=== PATIENT | male | born 2005 | race Caucasian/White ===

== ENCOUNTER 2024-11-22 05:58 | Emergency (ER) | payer BC, SELFPAY ==
--- OUTSIDE RECORDS SUMMARY | 2024-11-22 06:01 | XMS_ITS | Encounter Summary ---
Author Organization [facility] Address [address] [place] [address] Care Team Providers Care Floor Nurse Name Role Phone Provider, No Attributed RESOURCE Unavailable Unavailable Porter Yanes MD Primary Care Provider [phone] Reason for Visit * Reason Comments Refill Request Encounter Details Date Type Department Care Team (Late st Contact Info) Description 11/01/2024 Refill [facility] [address] [place] [address] Tomasz Bender MD [address] [place] [address] Refill Request Social History Tobacco Use Types Packs/Day Years Used Date Smoking Tobacco: Never Passive Smoke Exposure: Never Smokeless Tobacco: Never Alcohol Use Standard Drinks/Week Comments Never 0 (1 standard drink = 0.6 oz pur e alcohol) AUDIT-C Answer Date Recorded Q1: How often do you have a drink containing alc ohol? Never 12/22/2020 Average Number of Drinks Not on file 021 Frequency of Binge Drinking Not on file 12/05 PHQ-2 Answer Date Recorded PHQ-9 Total (Adult) 3 04/06/2024 Hunger Vital Sign Answer Date Recorded Within the past 12 months, y ou worried that your food would run out before you got the money to buy more. Never true 04/06/20 24 Within the past 12 months, t he food you bought just didn't last and you didn't have money to get more. Never true 04/06/2024 Abuse/Neglect Answer Date Recorded Member of Clubs or Organizations Not on file 04/06/2024 Does the patient display any signs or symptoms of abuse or neglect? No 04/06/2024 Sex and Gender Information Value Date Recorded Sex Assigned at Not on file Legal Sex Male 5:05 AM CDT Gender Identity Not on file Sexual Orientation Not on file documented as of this encounter Functional Status * Do you have difficulty with walking, balance, climbing stairs, or had a fall in the last 3 months? Answer Date of Assessment Author No 06/13/2017 4:11 PM CDT Katlin Fisher LPN documented as of this encounter Plan of Treatment Not on file documented as of this encounter Visit Diagnoses Diagnosis Controlled type 1 diabetes mellitus without complication, with long-term current use of insulin (HCC) documented in this encounter Care Teams Floor Nurse Relationship Specialty Start Date End Date Provider, No Attributed, RESOURCE [address] PCP - Attributed Provider 09/04/16 Porter Yanes MD [address] [place], [place] [address] PCP - General 09/28/19 documented as of this encounter
--- OUTSIDE RECORDS SUMMARY | 2024-11-22 06:01 | XMS_ITS ---
Author Name [employer] Organization [place] [facility] Support Name Relationship Address Phone NOT GIVEN Next of Kin [address] [place] [address] + JUANIS SUTTON Next of Kin [address] [place] [address] + ~([phone] PANTERA SUTTON Next of Kin [address] [place] [address] + ~(720 URMILA Next of Kin Unknown Unavailable Pantera Sutton Next of Kin [address] [place] [address] + [place], Juanis Next of Kin [address] [place] [address] + URMILA Next of Kin Unknown Unavailable Lesley Pantera Next of Kin [address] [place] [address] + [place], Juanis Next of Kin [address] [place] [address] + URMILA Next of Kin Unknown Unavailable Pantera Sutton Next of Kin [address] [place] [address] + Lesley, Juanis Next of Kin [address] [place] [address] + CHI Next of Kin Unknown Unavailable Pantera Sutton Next of Kin [address] [place] [address] + Lesley, Juanis Next of Kin [address] [place] [address] + CHI Next of Kin Unknown Unavailable Pantera Sutton Next of Kin [address] [place] [address] + Juanis Sutton Next of Kin [address] [place] [address] + CHI Next of Kin Unknown Unavailable Pantera Sutton Next of Ernesto [address] [place] [address] + Juanis Sutton Next of Kin [address] [place] [address] + NOT GIVEN Next of Kin [address] [place] [address] + JUANIS SUTTON Next of Kin [address] [place] [address] + ~(720 PANTERA SUTTON Next of Kin [address] [place] [address] + ~(720 [facility] Next of Kin Unknown Unavailable Pantera Sutton Next of Kin [address] [place] [address] + Juanis Sutton Next of Ernesto [address] [place] [address] + Care Team Providers Care Car Rental Agent Name Role Phone Nikita Willson Attending Physician Porter Lopez Primary Care Physician Porter Martinez Attending Physician Porter Giang Primary Care Physician Porter Martinez Attending Physician Porter Giang Primary Care Physician Letyva ilSnow Rae Attending Physician Potrer Abrams Primary Care Physician Unava ilSnow Rae Attending Physician Porter Abrams Primary Care Physician Letyva ilSnow Rae Attending Physician Porter Abrams Primary Care Physician Letyva ilSnow Rae Attending Physician Porter Abrams Primary Care Physician Rian ilSnow Rae Unavailable Unavailable PROBLEMS DATE TYPE CONDITION / CODE ATTENDING STATUS TINY GASTON 06/23/2024 Final Diagnosis (Discharge) Localized swelling, mass and lump, left upper limb / R22.32(ICD-10) Snow Corona [facility] 03/31/2024 Final Diagnosis (Discharge) Follicular cyst of the skin and subcutaneous tissue, unspecified / L72.9(ICD-10) Nikita Willson [facility] 03/31/2024 Final Diagnosis (Discharge) Benign lipomatous neoplasm, unspecified / D17.9(ICD-10) Nikita Willson [facility] RESULTS GENERAL SURGERY VISIT Observed: 07/02/20 24 9:43 AM Status: F Source: [place] REPOSITORY VIEWING DISCLAIMER Tables generated from host system lose formatting upon transmission to destination. Please consult the Document and Results tab for additional information. [facility] [place] Patient: Kolton Sutton [address] [place] [address] : 2005 Age/Sex: 18 / [place] [address] Status: DEP AMB P#: [phone] F#: Loc: CB.CBSURCL Acct: [id number] Visit Date: 07/02/24 [id number] General Surgery Visit Date of Service: 07/02/24 0943 Assessment Plan (1) Encounter for examination following surgery: (2) Lipoma of left forearm: Problem comment: excised x 4 Plan: Kolton Sutton is a 18-year-old male status post excision of left forearm lipomas x 3. I discussed with him that his incisions look to be healing very well. I do think the little patch of numbness lateral to the incisions could be because of positioning in the operating room or a superficial nerve injury with one of the lipoma excisions. Usually this does resolve in 6 to 12 weeks and I anticipate he will have full return of sensation. Discussed with him that he has no further bathing or activity restrictions. All questions were answered. He will follow-up as needed. Dictation Comment: This document was transcribed utilizing dqmyif-yc-eahy technology ([employer]). This may result in occasional mistranslation. Appointment was a face to face visit. Tobacco screening/follow-up Smoking tobacco status: former smoker Smokeless tobacco status: current smokeless tobacco user EMIL Hi is here for follow-up after excision of 3 lipomas in his left forearm. He states things are going well. His pain is minimal. He denies any swelling, redness, or drainage. He does have a little patch of numbness just lateral and distal to the more lateral incision. He does feel this numbness is getting better over time. He has full pattern storage clerk strength. Vital Signs 07/02/24 09:49 BP 108/72 Blood pressure location left arm Blood pressure position/source sitting - manual cuff BP cuff size adult Temp 97 F Temperature source tympanic Pulse 73 Respiration 16 Pulse oximetry 97 Oxygen delivery method room air Exam Objective/Exam: Constitutional Nurse documentation/Vital signs reviewed: yes Patient is well appearing; not in acute distress. Patient is alert, oriented x3 and cooperative on exam. HENMT Head: Atraumatic. Mouth: Moist mucous membranes. Cardiovascular Rate Rhythm: Regular rate. Respiratory Respiratory: Respiratory excursion is normal. Integumentary Details: On the left anterior forearm, all 3 incisions are clean, dry, intact with Dermabond in place. Intake Primary visit reason(s): Post-Operative Exam Intake assessment: Patient presents today for a post operative exam. Excision of left forearm lipoma x3 on 06/23/24. He states that he has had some numbness in his left wrist. He states that it is getting better every d ay, he states that there is some sensation but still numb. Appointment was a face to face visit Influenza vaccine status: patient will not receive this visit Have you traveled outside the [place] in the past 21 days: No Travel symptoms: none Smoking tobacco status: former smoker Patient is a former vaping/e-cigarette user Patient is a current smokeless tobacco user. Secondhand smoke exposure: Yes Allergies clindamycin Allergy (Severe, Verified 07/02/24 09:49) Hives Penicillins Allergy (Severe, Verified 07/02/24 09:49) Hives azithromycin Allergy (Mild, Verified 07/02/24 09:49) lip swelling Home Medication List - Last Reconciled 07/02/24 by Yusef Bowie LPN albuterol sulfate 90 mcg/actuation aerosol inhaler (Ventolin HFA) 1 inh inhalation 6H PRN blood sugar diagnostic As directed blood-glucose sensor As directed blood-glucose transmitter As directed diphenhydramine HCl 25 mg capsule (Benadryl) 25 mg PO BEDTIME PRN glucagon (human recombinant) 1 mg solution for injection PER MD GUIDANCE FOR DIABETIC CONTROL infusion set for insulin pump As directed insulin aspart U-100 100 unit/mL subcutaneous cartridge (Novolog PenFill U-100 Insulin aspart) 1 sliding scale dose subcut SLIDING insulin pump cartridge As directed lancets As directed levalbuterol HCl 1.25 mg/3 mL solution for nebulization (Xopenex) 1.25 mg (3 mL) inhalation TID PRN levocetirizine 5 mg tablet (Xyzal) 5 mg PO DAILY [Nebulizer (Nebulizer Machine) 1 EACH EACH] 1 ea ondansetron 8 mg disintegrating tablet 8 mg PO TID PRN Fall Risk Assessment Last Done: Have you had any falls in the last 12 months? no 04/0 01/24 Learning Language Readiness to learn: ready to learn Learning preferences: verbal and written Learning barriers: none Primary language: Senegalese Snow Corona MD <Electronically signed by Snow Corona MD> 07/02/24 1039 cc: CHAITANYA; : Document Initialized On: 07/02/24 0943 OPERATIVE NOTE Observed: 06/23/2024 12:15 PM Status: F [facility] [place] [id number] REPOSITORY VIEWING DISCLAIMER Tables generated from host system lose formatting upon transmission to destination. Please consult the Document and Results tab for additional information. [facility] Patient: Kolton Sutton [address] [place] [address] : 2005 Age/Sex: 18 / [place] [address] Status: REG SDS P#: [phone] F#: Loc: .[facility] Attending: Snow Corona MD Acct: [id number] Adm Date: 06/23/24 [facility] Date: MR:[id number] Operative Note Date of Service: 06/23/24 1215 Operative Procedure Operative/Procedure date: 06/23/24 Performing provider: Snow Corona MD Pre-operative diagnosis: Left forearm mass x 3 Post-operative diagnosis: Left forearm lipomas x 3 - Operative procedure(s): Excision of left forearm lipoma x 3 Indications: Kolton Sutton is a 18-year-old male with a past medical history significant for well-controlled type 1 diabetes, who presents with a symptomatic left forearm mass that is likely a lipoma. I discussed with the patient that given the size of the mass and his symptoms, I do recommend excision. I do think it needs to be done in the operating room because of the size. I discussed procedure with him in detail including the risks, benefits, alternatives of the procedure. We will plan to remove the 2 additional small masses just adjacent to this large mass as well. He will call his automatic spooler operator for recommendations on his insulin. All questions were answered. Patient was in agreement with plan. Consent was obtained. Complications: none - Findings: Lipomas x 3 measurin. 1.3 cm x 2.5 cm x 0.5 cm 2. 1 cm x 1 cm x 0.5 cm 3. 1.5 cm x 1 cm x 0.5 cm Estimated blood loss: 2 cc Specimens removed: other (lipoma x 3 discarded) Anesthesia used: moderate sedation - Procedure details: The patient was brought to the operating room and positioned supine on the operating room table. The left forearm was prepped and draped in the usual sterile fashion. A timeout was performed addressing the correct patient, procedure, medications, and equipment needed. After smooth induction of MAC anesthesia, local anesthetic was injected atop all 3 masses. Attention was first placed to the most lateral mass. An incision was made atop the mass. Dissection was taken down through the dermis with a 15 blade. Within the subcutaneous tissue an obvious lipoma was present. The lipoma was circumferentially dissected using a combination of a mosquito and cautery. The lipoma was entirely removed. The lipoma measured 1 cm x 1 cm x 0.5 cm. the wound bed was inspected and hemostasis ensured. Attention was then placed to the inferior mass. An incision was made atop the mass. Dissection was taken down through the dermis with a 15 blade. Within the subcutaneous tissue an obvious lipoma was present. The lipoma was circumferentially dissected using a combination of a mosquito and cautery. The lipoma was entirely removed. The lipoma measured 1.5 cm x 1 cm x 0.5 cm. The wound bed was inspected and hemostasis ensured. Attention was then placed to the medial mass. An incision was made atop the mass. Dissection was taken down through the dermis with a 15 blade. Within the subcutaneous tissue an obvious lipoma was present. The lipoma was circumferentially dissected using a combination of a mosquito and cautery. The lipoma was entirely removed. The lipoma measured 3 cm x 2.5 cm x 0.5 cm. the wound bed was inspected and hemostasis ensured. All 3 incisions were closed in 2 layers with interrupted 3-0 Vicryl deep dermal sutures followed by a 4-0 Monocryl running subcuticular stitch. The incisions were dressed with Dermabond. The patient tolerated the procedure well. All lap and instrument counts are correct. Dictation Comment: This document was transcribed utilizing nylcmj-pz-zuts technology ([employer] software). This may result in occasional mistranslation. Snow Corona MD <Electronically signed by Snow Corona MD> 06/23/24 1219 cc: ROBERTO CARLOS FLORIAN; : Document Initialized On: 06/23/24 1215 GENERAL SURGERY VISIT Observed: 06/18/20 10:10 AM Status: F Source: [place] [id number] REPOSITORY VIEWING DISCLAIMER Tables generated from host system lose formatting upon transmission to destination. Please consult the Document and Results tab for additional information. [facility] [place] Patient: Kolton Sutton [address] [place] [address] : 2005 Age/Sex: 18 / M [place], [place] [address] Status: DEP AMB P#: [phone] F#: Loc: CB.CBSURCL Attending: Snow Corona MD Acct: [id number] Adm Date: 06/18/24 [facility] Date: 06/18/24 MR:[id number] General Surgery Visit Date of Service: 06/18/24 1010 Assessment Plan (1) Lipoma: Plan: Kolton Sutton is a 18-year-old male with a past medical history significant for well-controlled type 1 diabetes, who presents with a symptomatic left forearm mass that is likely a lipoma. I discussed with the patient that given the size of the mass and his symptoms, I do recommend excision. I do think it needs to be done in the operating room because of the size. I discussed procedure with him in detail including the risks, benefits, alternatives of the procedure. We will plan to remove the 2 additional small masses just adjacent to this large mass as well. He will call his automatic spooler operator for recommendations on his insulin. All questions were answered. Patient was in agreement with plan. Dictation Comment: This document was transcribed utilizing bqnmwy-fa-qwkl technology (GumGum software). This may result in occasional mistranslation. Appointment was a face to face visit. Tobacco screening/follow-up Smoking tobacco status: former smoker Smokeless tobacco status: current smokeless tobacco user HPI Kolton Sutton is a 18-year-old male with a past medical history significant for type 1 diabetes who presents with a left forearm mass. Patient states he has noticed this mass for multiple years. It has slowly increased in size. He does think it is a lipoma. He has had a lipoma removed from this arm previously. He states it did not bother him initially but now it is causing significant pain. He likes to climb for exercise and states it is preventing him from climbing because of the pain. The pain is localized to that area and does not radiate. He denies any overlying skin redness or swelling. He denies any drainage. If he rests his arm the pain will get better. It also is tender if it gets pushed on. He also has 2 small ones right next to it that are almost connected to it. He does have type 1 diabetes which is well-controlled. He is a non-smoker. Subjective/ROS: General ROS: A 10 point review of system was obtained and is negative except per HPI Vital Signs 08/15/24 10:33 Height 5 ft 10.75 in Weight 87.5 kg Weight calculated (Senegalese) 192.9 lb BMI 27.1 BP 126/64 Blood pressure location left arm Blood pressure position/source sitting - manual cuff BP cuff size large adult Temp 96.7 F L Temperature source tympanic Pulse 90 Pulse oximetry 99 Oxygen delivery method room air Exam Objective/Exam: Constitutional Nurse documentation/Vital signs reviewed: yes Patient is well appearing; not in acute distress. Patient is alert, oriented x3 and cooperative on exam. HENMT Head: Atraumatic. Mouth: Moist mucous membranes. Cardiovascular Rate Rhythm: Regular rate. Respiratory Respiratory: Respiratory excursion is normal. Integumentary Details: On the left anterior forearm is an obvious mass. It is about 3 cm in diameter. Tender with palpation. Just lateral to the mass are 2 smaller masses about 1 cm in size. No overlying skin redness. PFSH PFSH Active Problems (Updated 06/18/24 @ 11:19 by Snow Corona MD) DM w/o complication type I (Acute 06/02/12) E10.9 Allergic asthma (Acute 08/22/12) J45.909 Medical History (Updated 06/18/24 @ 11:19 by Snow Corona MD) Sore throat J02.9 Varicella infection B01.9 03/2006 Tobacco/Substance use Smoking tobacco status: Patient is a former smoker. Vaping/e-cigarette use: never Smokeless tobacco status: current user Secondhand smoke exposure: yes Intake Primary visit reason(s): Lipoma Intake assessment: Here for left forearm lump. He states for the past few years it has gotten bigger. The last 6 weeks. Appointment was a face to face visit Have you traveled outside the [place] in the past 21 days: Yes Travel symptoms: none Smoking tobacco status: former smoker Patient has never been a vaping/e-cigarette user Patient is a current smokeless tobacco user. Secondhand smoke exposure: Yes Allergies clindamycin Allergy (Severe, Verified 06/18/24 10:35) Hives Penicillins Allergy (Severe, Verified 06/18/24 10:35) Hives azithromycin Allergy (Mild, Verified 06/18/24 10:35) lip swelling Home Medication List - Last Reconciled 06/18/24 by Kavon Bliss RN albuterol sulfate 90 mcg/actuation aerosol inhaler (Ventolin HFA) 1 inh inhalation 6H PRN blood sugar diagnostic As directed blood-glucose sensor As directed blood-glucose transmitter As directed diphenhydramine HCl 25 mg capsule (Benadryl) 25 mg PO BEDTIME PRN glucagon (human recombinant) 1 mg solution for injection PER MD GUIDANCE FOR DIABETIC CONTROL infusion set for insulin pump As directed insulin aspart U-100 100 unit/mL subcutaneous cartridge (Novolog PenFill U-100 Insulin aspart) 0 subcut SLIDING insulin pump cartridge As directed lancets As directed levalbuterol HCl 1.25 mg/3 mL solution for nebulization (Xopenex) 1.25 mg (3 mL) inhalation TID PRN levocetirizine 5 mg tablet (Xyzal) 5 mg PO DAILY [Nebulizer (Nebulizer Machine) 1 EACH EACH] Use as needed with neb treatments. ondansetron 8 mg disintegrating tablet 8 mg PO TID PRN Fall Risk Assessment Last Done: Have you had any falls in the last 12 months? no 01/24 Pain Patient is not currently experiencing pain. Learning Language Readiness to learn: ready to learn Learning preferences: verbal and written Learning barriers: none Primary language: Senegalese (1) Lipoma Lipoma location: upper extremity Laterality: left Qualified Code(s): D17.22 - Benign lipomatous neoplasm of skin and subcutaneous tissue of left arm Snow Corona MD <Electronically signed by Snow Corona MD> 06/18/24 1119 cc: [facility]; : Document Initialized On: 06/18/24 1010 FAMILY MEDICINE VISIT Observed: 03/31/20 24 4:21 PM Status: UNK Source: [place] REPOSITORY VIEWING DISCLAIMER Tables generated from host system lose formatting upon transmission to destination. Please consult the Document and Results tab for additional information. [facility] [place] Patient: Kolton Sutton [address] [place] [address] : 2005 Age/Sex: 18 / [place] [address] Status: DEP AMB P#: [phone] F#: Loc: .BWFPCL Attending: Nikita Willson DO Acct: [id number] Adm Date: 03/31/24 [facility] Date: 03/31/24 MR:[id number] Family Medicine Visit Date of Service: 03/31/24 1002 ADDENDUM Office Procedure Documentation entered by Juanis Mckeon RN 03/31/24 16:21: Office Meds lidocaine 1 %-epinephrine 1:100,000 injection solution Performing Provider: Nikita Willson DO Performing Location: [facility] Administered by: Juanis Mckeon RN on 03/31/24 16:19 Dose Route Admin Location Dispensed Lot Number Expiration Date [facility] Man ufacturer 2.5 mL subcut Left forearm 2.5 mL [id number] 01/31/25 68362-089-52 DEQUAN Mckeon RN cc: [id number] 1621 Assessment Plan (1) Cyst of skin: (2) Lipoma: Appointment was a face to face visit. Plan details: * Discussed differential for left forearm cyst, as this is contributing to discomfort, he elected for removal, complications discussed, see separate procedure note Subjective Patient returns to follow-up recent concern for cyst on left arm, has noticed some more growths in same area, these are growing and somewhat painful. Looks like he was evaluated 4/3, 2 lipomas on left forearm, and 1 cyst on left forearm were noted. He was instructed to monitor for changes, discussed excision but possibility for recurrence. He shares that when he flexes his forearm, or this particular bump is contacted he will have discomfort. He is interested in removal today. His medical history is significant for type 1 diabetes. Medications, Allergies, and PMH/PSH/FH/SH reviewed. Objective Vitals reviewed. GENERAL: Alert and oriented x 3. No acute distress. Well-nourished. EXTREMITIES: No edema. Non-tender. Distal, third region of volar left forearm palpated, there is a small about 2 cm mobile structure notable in superficial dermis, this was identified as the area of concern, and marked for removal SKIN: No rashes or lesions. Warm. Does have some ipsilateral contact dermatitis surrounding the left wrist and a watch distribution, this is a separate area Tobacco screening/follow-up Smoking tobacco status: former smoker Smokeless tobacco status: never smokeless tobacco user Provider Procedures Lesions Procedure details After informed consent was received, the area was prepped in sterile fashion and 2.5 cc of 1% Lidocaine with epinephrine was used to obtain anesthesia. A 3 cm incision was made across the lesion using 11 blade scalpel. I then dissected out the lipoma and its full contents from surrounding connective tissue using blunt dissection. There was no excess lipoma or cyst left at this site. 3 interrupted sutures with 4-0 suture were placed. Removal of sutures was arranged in 7 days. Dressing applied. Aftercare instructions discussed. Patient tolerated the procedure well. Sent for path. Does appear like a lipoma. Vital Signs 03/31/24 11:44 Weight 86 kg Weight calculated ([place]alese) 189.6 lb BP 118/68 Blood pressure location right arm Blood pressure position/source sitting - manual cuff BP cuff size adult Temp 98.2 F Temperature source temporal Pulse 72 Respiration 16 Pulse oximetry 98 Oxygen delivery method room air Exam Objective/Exam: Constitutional Patient is an established patient. [facility] Active Problems (Updated 01/28/23 @ 16:13 by Rj Tavarez MD) Sore throat J02.9 DM w/o complication type I (Acute 06/02/12) E10.9 Allergic asthma (Acute 08/22/12) J45.909 Medical History Varicella infection B01.9 03/2006 Tobacco/Substance use Smoking tobacco status: Patient is a former smoker. Vaping/e-cigarette use: current Smokeless tobacco status: never smokeless tobacco user Secondhand smoke exposure: yes Intake Primary visit reason(s): Lipoma Appointment was a face to face visit Have you traveled outside the [place] in the past 21 days: Yes ([place] ) Travel symptoms: none Smoking tobacco status: former smoker Patient is a current vaping/e-cigarette user Patient has never been a smokeless tobacco user. Secondhand smoke exposure: Yes Allergies clindamycin Allergy (Severe, Verified 03/31/24 11:47) Hives Penicillins Allergy (Severe, Verified 03/31/24 11:47) Hives azithromycin Allergy (Mild, Verified 03/31/24 11:47) lip swelling Home Medication List - Last Reconciled 03/31/24 by Juanis Mckeon, REGINALD albuterol sulfate 90 mcg/actuation aerosol inhaler (Ventolin HFA) 1 inh inhalation 6H PRN blood sugar diagnostic As directed blood-glucose sensor As directed blood-glucose transmitter As directed diphenhydramine HCl 25 mg capsule (Benadryl) 25 mg PO BEDTIME PRN glucagon (human recombinant) 1 mg solution for injection PER MD GUIDANCE FOR DIABETIC CONTROL infusion set for insulin pump As directed insulin aspart U-100 100 unit/mL subcutaneous cartridge (Novolog PenFill U-100 Insulin aspart) 0 subcut SLIDING insulin pump cartridge As directed lancets As directed levalbuterol HCl 1.25 mg/3 mL solution for nebulization (Xopenex) 1.25 mg (3 mL) inhalation TID PRN levocetirizine 5 mg tablet (Xyzal) 5 mg PO DAILY [Nebulizer (Nebulizer Machine) 1 EACH EACH] Use as needed with neb treatments. ondansetron 8 mg disintegrating tablet 8 mg PO TID PRN Fall Risk Assessment Last Done: Have you had any falls in the last 12 months? no 01/24 Visit Details Patient is an established patient. Accompanied by: Self / Same As Patient Pain Patient is currently experiencing pain. (cyst of left forearm pain ) Left Arm pain 11/13 Learning Language Readiness to learn: ready to learn Learning preferences: verbal and written Learning barriers: none Primary language: Sen[place]alese Nikita Willson DO <Electronically signed by Nikita Willson DO> 03/31/24 1442 cc: ; : Document Initialized On: 03/31/24 1002 SURGICAL Observed: 03/31/2024 12:00 AM Status: COMPLETED Source: [place] REPOSITORY ----- ------- RUN DATE: 04/03/24 TROY LAM AviationLive* - LAB PAGE 1 RUN TIME: 954 Specimen Inquiry ----- ------- PATIENT: Kolton Sutton ACCT: [id number] LOC: .BWFPCL U: [id number] AGE/SX: 18/M ROOM: RE03/31/[address]: Nikita Willson DO : 2005 BED: DIS: STATUS: MARY JANE CELAYA TLOC: ----- ------- SPEC : [id number] RECD: 04/01/24 STATUS: [facility] NUM: [id number] ROLANDO: 03/31/24- SUBM DR: Nikita Willson DO ENTERED: 04/01/24 SP TYPE: Surgical OT DR: ORDERED: [id number] CODES: Cyst, NOS PROCEDURES: 84424 (04/01/24) TISSUES: 1. Cyst, NOS PATHOLOGY REPORT: DIAGNOSIS SOFT TISSUE, LEFT FOREARM NODULE, EXCISION: ANGIOLIPOMA. CLINICAL HISTORY: Enlarging skin nodule, forearm, painful. SPECIMEN: CYST, NOS, LEFT FOREARM GROSS DESCRIPTION: Received in formalin labeled with the patient's name and left forearm cyst is a 2.8 x 2.5 x 0.4 cm aggregate of monroy-maurer to brown, irregular, lobulated, fibrofatty soft tissue fragments. TE1. Natalie Weirarron OMAR 04/01/2024 1141 MICROSCOPIC DESCRIPTION: Sections show fibrofatty soft tissue with lobulated areas of mature fat, delicate fibrous septae and numerous capillaries with fibrin thrombi. There is no evidence of malignancy. TECHNICAL BILLING CODES (CPT): 38531 X 1 PROFESSIONAL BILLING CODES (CPT): 42293 X 1 Printed: 04/03/2024 9:54 AM YAJAIRA AQUINO MD 04/03/2024 09:54 Electronic Signature CONTINUED ON NEXT PAGE ----- ------- RUN DATE: 04/03/24 HERMILA *Live* - LAB PAGE 2 RUN TIME: 954 Specimen Inquiry ----- ------- SPEC: [id number] PATIENT: Kolton Sutton [id number] (Continued) ----- ------- ----- ------- Signed Yajaira Aquino MD 04/03/24 0955 ----- ------- END OF REPORT Performed By: #### S #### Hermila [address] [address] ALLERGIES DATE TYPE / CODE NAME / CODE REACTION SEVERITY SOURCE 07/02/2024 Drug Allergy/416 780866(SNOM ED CT) Penicillins/X82260506 6(RXNORM) Hives Severe (Severity Modifier) (Qualifier Value) [facility] 07/02/2024 Drug Allergy/416 574543(SNOM ED CT) clindamycin/E64428227 4(RXNORM) Hives Severe (Severity Modifier) (Qualifier Value) [facility] 07/02/2024 Drug Allergy/416 642002(SNOM ED CT) azithromycin/S0748333 35(RXNORM) lip swelling Mild (Qualifier Value) [facility] 09/21/2020 DRUG INGREDI/419 581533(SNOM ED CT) AZITHROMYCIN HYDROGENCITRATE Other [facility] 01/09/2018 Environ/420 050628(SNOM ED CT) PLANTS Positive Lab [facility] 01/09/2018 DRUG INGREDI/419 010471(SNOM ED CT) MOLDS AND SMUTS Positive Lab [facility] 09/11/2013 DRUG INGREDI/419 234463(SNOM ED CT) CLINDAMYCIN Rash [facility] 08/09/2011 Drug Class/76338 1003(SNOMED CT) PENICILLIN HIVES [facility] ENCOUNTERS ADMIT/DISCHARGE ACCOUNT NUMBER ADMITTING ENCOUNTER CLASS LOCATION SOURCE 10/02/2024 [id number] Ambulatory Building:[facility] PBBRoom: [id number] [facility] 07/02/2024/07/02/20 24 [id number] Ambulatory [facility]/23/2024/06/23/20 24 [id number] Ambulatory SBuilding:BBSammy Salazar [facility] 06/23/2024 [id number] Ambulatory [facility] SpecialtyBuilding :CB.ALVARO [facility] 06/18/2024/06/18/20 24 [id number] Ambulatory [facility] :CB.OLIVIER [facility] 06/12/2024 [id number] [facility] 04/07/2024/04/07/20 24 [id number] [facility] 04/06/2024/04/06/20 24 [id number] Ambulatory Building:[facility] N S [facility] ENDO[facility]OLOGY PBBRoom: [phone] [facility] 03/31/2024/03/31/20 24 [id number] [facility].BWFPCL [facility] PAYERS ENCOUNTER GUARANTOR PAYER SUBSCRIBER SOURCE 10/02/2024 Primary Insuranc e:[facility] TRINITY ALMANZAPolicy Number: [id number] Date:5234-16-16Pgvv Name:Marisa Levine WINGATEDOB: [id number] [place] [address] [facility] 07/02/2024 Kolton [id number], [place] [address]Vlv: (HP) Primary Insurance:[facility] 141Policy Number: [id number] Date:5575-02-24[address] [address]IJ: Pantera Barr WingateDOB: [id number] [place] [address]Vga: (HP) [facility] 07/02/2024 Kolton [id number], [place] [address]Gej: (HP) Secondary Insurance:Self PayPolicy Number: Effective Date:2024-06-23 NOT GIVENUNK [facility] 06/23/2024 Kolton [id number] [place], [place] [address]Qmn: (HP) Primary Insurance:[facility] 141Policy Number: [id number] Date:0962-99-99ZK [address] [address]PG: Pantera Barr WingateDOB: [id number] [place] [address]Lsf: (HP) [facility] 06/23/2024 Kolton [id number] [place], [place] [address]Ucf: (HP) Secondary Insurance:Self PayPolicy Number: Effective Date:2024-06-22 NOT GIVENUNK [facility] 06/23/2024 Kolton [id number], [place] [address]Ilk: (HP) Primary Insurance:[facility] 141Policy Number: [id number] Date:8443-48-97ST [address] [address]OC: Pantera Barr WingateDOB: [id number] [place] [address]Nkm: (HP) [facility] 06/23/2024 Kolton [id number], [place] [address]Xkh: (HP) Secondary Insurance:Self PayPolicy Number: Effective Date:2024-06-23 NOT GIVENUNK [facility] 06/18/2024 Kolton [id number], [place] [address]Dcb: (HP) Primary Insurance:[facility] 141Policy Number: [id number] Date:4256-92-39GG [address] [address]XT: Pantera Rowejinny ReyesateDOB: [id number] [place] [address]Nuw: (HP) [facility] 06/18/2024 Kolton [id number] [place], [place] [address]Kgz: (HP) Secondary Insurance:Self PayPolicy Number: Effective Date:2024-06-16 NOT GIVENUNK [facility] 06/12/2024 Kolton [id number], [place] [address]Jed: (HP) Primary Insurance:[facility] 141Policy Number: [id number] Date:7297-34-35RS [address] [address]SR: Pantera ReyesateDOB: [id number] [place] [address]Plg: (HP) [facility] 06/12/2024 Kolton [id number], [place] [address]Zba: (HP) Secondary Insurance:Self PayPolicy Number: Effective Date:2024-06-11 NOT GIVENUNK [facility] 04/07/2024 Kolton [id number], [place] [address]Ogw: (HP) Primary Insurance:[facility] 141Policy Number: [id number] Date:3016-94-38DG [address] [address]EG: Pantera Barr ateDOB: [id number] [place] [address]Cai: (HP) [facility] 04/07/2024 Kolton [id number], [place] [address]Oxl: (HP) Secondary Insurance:Self PayPolicy Number: Effective Date:2024-04-03 NOT GIVENUNK [facility] 04/06/2024 Primary Insuranc e:[facility] TRINITY SHETTYHOLSTEINUsmany Number: [id number] Date:3006-95-16Dkll Name:Marisa REYESATEDOB: [id number] [place] [address] [facility] 03/31/2024 Kolton [id number], [place] [address]Xas: (HP) Primary Insurance:[facility] 141Policy Number: [id number] Date:0983-35-14BX [address] [address]OR: Pantera Barrettolas WingateDOB: [id number] [place] [address]Cug: () [facility] 03/31/2024 Kolton [id number] [place] [address]Lzu: () Secondary Insurance:Self PayPolicy Number: Effective Date:2024-03-31 NOT GIVENUNK [facility]
--- OUTSIDE RECORDS SUMMARY | 2024-11-22 06:01 | XMS_ITS | Clinical Summary ---
Author Organization Counts include 234 beds at the [facility] Address [address] [place] [address] Care Team Providers Care Lock And Dam Repairer Name Role Phone Self-Referral, Patient MD Primary Care Provider Source Comments You are receiving this document as you are listed as the primary care provider,follow-up provider, or the patient has been referred to you for consultation.This is in compliance with the Medicare andJoint [facility] Memorial Hospitalcaid EHR Incentive Program,which states Providers who transition their patient to another setting of careor provider of care or refers their patient to another provider of care shouldprovide summary care record for each transition of care or referral. [facility] Allerg[facility] Active Allergy Reactions Criticality Noted Date Comments Azithromycin Hives High 09/30/2024 Clindamycin Hives High 09/30/2024 Penicillins Hives High 09/30/2024 Medications Medication Sig Dispensed Refills Start Date End Date Status Insulin Aspart (NOVOLOG IJ) Active insulin aspart, w/niacinamide, 100 UNIT/ML SOLN Inject 0.88 mL (88 Units) subcutaneously daily. 80 mL 4 09/30/2024 Active insulin syringe-needle U-100 0.3ml 31g x 15/64 Use to inject insulin daily as instructed. 100 Each 3 09/30/2024 09/30/2025 Active Dexcom G7 Sensor continuous blood glucose deviceIndications: Type 1 diabetes mellitus without complication (HRC) Use for continuous glucose monitoring. Change sensor every 10 days. 09/30/2024 Active Active Problems Problem Noted Date Diagnosed Date Type 1 diabetes mellitus without complication IgA deficiency 09/30/2024 Encounters Date Type Department Care Team Description 09/30/2024 2:35 PM MANGANESE HEATER Lab Visit [facility] 3850 Laboratory [address] [facility] [place], [place] [id number] Type 1 diabetes mellitus without complication (HRC) 09/30/2024 1:40 PM MANGANESE HEATER Office Visit [facility] [address] [place] [address]. [place] [address] Olegario Brunner MD Type 1 diabetes mellitus without complication (HRC) (Primary Dx); Attention deficit; IgA deficiency (HRC) from Last 3 Months Social History Tobacco Use Types Packs/Day Years Used Date Smoking Tobacco: Never Smokeless Tobacco: Former Snuff Tobacco Cessation:Counseling Given: Not Answered Alcohol Use Standard Drinks/Week Comments Yes 0 (1 standard drink = 0.6 oz pur e alcohol) 1 Sex and Gender Information Value Date Recorded Sex Assigned at Not on file Gender Identity Not on file Sexual Orientation Not on file Last Filed Vital Signs Vital Sign Reading Time Taken Comments Blood Pressure 121/60 09/30/2024 2:25 PM MANGANESE HEATER Pulse 62 09/30/2024 2:25 PM MANGANESE HEATER Temperature - - Respiratory Rate - - Oxygen Saturation - - Inhaled Oxygen Concentration - - Weight 90.8 kg (200 lb 3.2 oz) 09/30/2024 1:44 P M MANGANESE HEATER Height 179.7 cm (5' 10.75) 09/30/2024 1:[address] Body Mass Index 28.12 09/30/2024 1:44 PM MANGANESE HEATER Plan of Treatment Upcoming Encounters Date Type Department Care Team (Late st Contact Info) Description 03/24/2025 9:15 AM CDT Appointment [place] [address] [place] [address]. [place] [address] Ponce Jones PA-C [address] [place], [place] [phone] Health Maintenance Due Date Last Done Comments Diabetes: Eye Exam 2004 Diabetes: Foot Exam 2004 Hep C Screening (Preventive Services) 2004 Pneumococcal (1 - PCV) 2010 HPV Vaccine (1 - Male 3-dose series) 2019 HIV Screening (Preventive Services) 2020 Adult Preventive Visit 2022 DTaP/Tdap/Td (1 - Tdap) 2023 HepB (1) 2023 Diabetes: HGBA1C 03/30/2025 09/30/2024 Diabetes: Creatinine 09/30/2025 09/30/2024 Diabetes: Urine Microalbumin 09/30/2025 09/30/2024 Diabetes: Lipid Panel 09/30/2029 09/30/2024 Zoster/Shingles (1 of 2) 2054 COVID-19 Vaccine Completed 08/06/2024, 10/31/2023 Influenza Completed 08/06/2024, 10/31/2023 HepA Aged Out No longer eligi ble based on patient's age to complete this topic Hib Aged Out No longer eligi ble based on patient's age to complete this topic IPV (Polio) Aged Out No longer eligi ble based on patient's age to complete this topic MCV4 Aged Out No longer eligi ble based on patient's age to complete this topic Procedures Procedure Name Priority Date/Time Associated Diagnosis Comments ALBUMIN/CREAT RATIO Routine 09/30/2024 2 :56 PM MANGANESE HEATER Type 1 diabetes mellitus without complication (HRC) CREATININE / GFR Routine 09/30/2024 2:37 PM MANGANESE HEATER Type 1 diabetes mellitus without complication (HRC) LIPID PANEL & DIRECT LDL (IF NEEDED) Routine 09/30/2024 2:37 PM MANGANESE HEATER Type 1 diabetes mellitus without complication (HRC) COMPLETE BLOOD COUNT-NO DIFF Routine 09/30/2024 2:37 PM MANGANESE HEATER Type 1 diabetes mellitus without complication (HRC) HGB A1C Routine 09/30/2024 2:37 PM MANGANESE HEATER Type 1 diabetes mellitus without complication (HRC) from Last 3 Months Results * Albumin/Creatinine Ratio,Random Urine (09/30/2024 2:56 PM MANGANESE HEATER) Albumin/Creati nine Ratio, Urine, Random 2 <30 mg/g 09/30/2024 4:27 PM MANGANESE HEATER [facility] 3850 LABORATORY Albumin, Urine, Random 2.2 mg/L 09/30/2024 4:27 PM [place] [address] LABORATORY Creatinine, Urine, Random 105 >20 mg/dL mg/dL 09/30/2024 4:27 PM MANGANESE HEATER [place] 638960 LABORATORY Urine Non-blood Collection / Unknown 09/30/2024 2:56 PM MANGANESE HEATER 09/30/2024 2:56 PM MANGANESE HEATER Olegario Brunner MD LAB_1 Performing Organization Address [facility] de Phone Number [place] [id number] [place] [address] * (ABNORMAL) Lipid Panel & Direct LDL (if Needed) (09/30/2024 2:37 PM MANGANESE HEATER) [facility] Cholesterol 143 0 - 199 mg/dL 09/30/2024 4:30 PM [place] [address] LABORATORY Triglyceride 86 <=149 mg/dL 09/30/2024 4:30 PM [place] [address] LABORATORY HDL Cholesterol 35(L) >=40 mg/dL 4:30 PM [place] [address] LABORATORY LDL, Calculated 91 <130 mg/dL 4:30 PM [place] [address] LABORATORY Non HDL Chol, Calculated 108 <=144 mg/dL 09/30/2024 4:30 PM [place] 166470 LABORATORY Cholesterol/HDL Ratio 4.1 <=5.0 09/30/2024 4:30 PM [place] [address] LABORATORY Hours Fasting 0.0 8 - 12 Hours 09/30/2024 4:30 PM [place] [address]64[address] LABORATORY Comment:Patient has indicate d a non-fasting status. Blood Venipuncture / Unknown 09/30/2024 2:37 PM MANGANESE HEATER 09/30/2024 2:37 PM MANGANESE HEATER Olegario Brunner MD LAB_1 Performing Organization Address City/[facility]/ZIP Co de Phone Number [place] [address] LABORATORY [address] [place] [address], [facility] * Creatinine / GFR (09/30/2024 2:37 PM MANGANESE HEATER) [facility] Creatinine 1.18 0.73 - 1.18 mg/dL 09/30/2024 4:30 PM MANGANESE HEATER [place] [address] LABORATORY GFR, Estimated >60 >60 mL/min/1.7 3m2 09/30/2024 4:30 PM MANGANESE HEATER [place] [address] LABORATORY Blood Venipuncture / Unknown 09/30/2024 2:37 PM MANGANESE HEATER 09/30/2024 2:37 PM MANGANESE HEATER Olegario Brunner MD LAB_1 Performing Organization Address [facility] Co de Phone Number [place] [address] LABORATORY [address] [place] [address] * (ABNORMAL) Complete Blood Count-No Diff (09/30/2024 2:37 PM MANGANESE HEATER) [facility] WBC 5.8 3.5 - 10.5 x10(9)/L 09/30/2024 2:56 PM MANGANESE HEATER [place] [address] LABORATORY RBC 5.25 4.32 - 5.72 x10(12)/L 09/30/2024 2:56 PM [place] [address] LABORATORY Hemoglobin 16.1 13.5 - 17.5 g/dL 09/30/2024 2:56 PM [place] [address] LABORATORY HCT 45.6 38.8 - 50.0 % 09/30/2024 2:56 PM [place] [address] LABORATORY MCV 86.9 80.0 - 100.0 fL 09/30/2024 2:56 PM [place] [address] LABORATORY MCH 30.7 27.6 - 33.3 pg 09/30/2024 2:56 PM [place] [address] LABORATORY MCHC 35.3(H) 31.5 - 35.2 g/dL 09/30/2024 2:56 PM [place] [address] LABORATORY RDW 11.9 11.9 - 15.5 % 09/30/2024 2:56 PM MANGANESE HEATER [place] [address] LABORATORY Platelets 250 150 - 450 x10(9)/L 09/30/2024 2:56 PM MANGANESE HEATER [place] [address] LABORATORY Automated NRBC 0 <=0 /100 WBC 09/30/2024 2:56 PM MANGANESE HEATER [facility] 3850 LABORATORY Blood Venipuncture / Unknown 09/30/2024 2:37 PM MANGANESE HEATER 09/30/2024 2:37 PM MANGANESE HEATER Olegario Brunner MD LAB_1 Performing Organization Address City/[facility]/ZIP Co de Phone Number [place] [address] LABORATORY [address] [place] [address], [facility] * (ABNORMAL) Hgb A1C (09/30/2024 2:37 PM MANGANESE HEATER) Hemoglobin A1C 7.1(H) <=5.6 % 10/01/2024 11:19 AM [facility] Estimated Average Glucose (Calc) 157 < 117 mg/dL 10/01/2024 11:19 AM [facility] Comment:Estimated average gl ucose (eAG) converts A1c into glucose units (mg/dL) and estimates average glucose over the past approximately 3 months. The eAG reference interval (<117 mg/dL) corresponds to an A1c of <5.7%. Blood Venipuncture / Unknown 09/30/2024 2:37 PM MANGANESE HEATER 09/30/2024 2:37 PM MANGANESE HEATER Narrative [facility] - 10/01/2024 11:19 AM MANGANESE HEATER For patients not previously diagnosed with diabetes: 5.7-6.4%: Increased risk for diabetes 6.5% and greater: Diagnostic for diabetes For patients diagnosed with diabetes: <8.0%: Goal of therapy for ages 18-75 Clinicians may recommend a higher or lower goal for specific individuals. Olegario Brunner MD LAB_1 [facility] [address] [address], [facility] from Last 3 Months Care Teams Lock And Dam Repairer Relationship Specialty Start Date End Date Self-Referral, Patient, [place] [address] PCP - General 08/26/24
--- OUTSIDE RECORDS SUMMARY | 2024-11-22 06:01 | XMS_ITS | Clinical Summary ---
Author Organization [employer] Address [address] [place] [address] Care Team Providers Care Director Music Name Role Phone Provider, No Attributed RESOURCE Unavailable Unavailable Porter Yanes MD Primary Care Provider [phone] Allergies Active Allergy Reactions Criticality Noted Date Comments Azithromycin Hydrogencitrate Other (Specify in Comments) 09/21/2020 Lips swelled Clindamycin Rash 09/11/2013 Possible rash from medication Plants Positive Allergy Test or Lab Result 01/09/2018 Trees/grasses/weeds Molds & Smuts Positive Allergy Test or Lab Result 01/09/2018 Penicillin Hives (High) High 08/09/2011 Medications levalbuterol (XOPENEX HFA) 45 MCG/ACT inhaler Inhale 2 puffs orally every 4 to 6 hours as needed. Shake well before using. Active Blood Glucose Monitoring Suppl (ACCU-CHEK GUIDE) w/Device KITIndications:Un controlled type 1 diabetes mellitus with hyperglycemia, with long-term current use of insulin (HCC) 1 each as needed (Use to check blood sugar as needed.) 1 Device 07/25/20 20 Active ibuprofen (MOTRIN) 800 mg tablet Take 1 tablet by mouth Every 6 to 8 hours as needed for mild pain 03/28/20 21 Active Insulin Infusion Pump Supplies (AUTOSOFT XC INFUSION SET) MISC 04/20/20 21 Active Accu-Chek Fastclix lancetsIndication s:Uncontrolled type 1 diabetes mellitus with hyperglycemia, with long-term current use of insulin ([facility]) Use to check blood sugar up to 10 times daily, more if increased activity, illness, or insulin changes. 100 each 12/13/19 22 Active insulin detemir (LEVEMIR) subcutaneous injection (vial)Indications :Uncontrolled type 1 diabetes mellitus with hyperglycemia, with long-term current use of insulin ([facility]) Administer 27 units subcutaneously at bedtime (+2 units for priming); change dose as directed. 15 mL 1 04/13/20 22 Active glucagon (BAQSIMI ONE PACK) 3 MG/DOSE nasal powderIndications :Controlled type 1 diabetes mellitus without complication, with long-term current use of insulin ([facility]) [place] 3 mg into one nostril as needed (severe hypoglycemia) 1 each 3 06/04/20 23 Active glucagon, rDNA, (GLUCAGEN) 1 mg injection kitIndications:Un controlled type 1 diabetes mellitus with hyperglycemia, with long-term current use of insulin ([facility]) Inject 1 mg IM for severe low blood sugar when unable to take oral glucose. 2 each 3 06/04/20 23 Active Accu-Check Guide test stripIndications: Uncontrolled type 1 diabetes mellitus with hyperglycemia, with long-term current use of insulin ([facility]) Use to check blood sugar up to 5 times daily, more if increased activity, illness, or insulin changes. 150 each 06/10/20 23 Active acetone, urine, test (KETOSTIX) STRPIndications:U ncontrolled type 1 diabetes mellitus with hyperglycemia, with long-term current use of insulin ([facility]) Use to check urine for ketones with illness, vomiting, and/or blood sugar >300 x2. 50 Strip 3 10/03/20 23 Active ondansetron (ZOFRAN ODT) 8 mg dispersible tabletIndications :Uncontrolled type 1 diabetes mellitus with hyperglycemia, with long-term current use of insulin ([facility]) Take 1 tablet (8 mg) by mouth as needed for nausea or vomiting 10 tablet 6 10/03/20 23 Active Dexcom G7 SensorIndications :Type 1 diabetes mellitus with hyperglycemia ([facility]) Apply new sensor to be used every 10 days with Dexcom G7. 9 each 3 01/17/20 24 Active insulin aspart (NOVOLOG) subcutaneous injection (vial)Indications :Controlled type 1 diabetes mellitus without complication, with long-term current use of insulin ([facility]) Use to control blood sugar as directed. Currently using up to 72 units per day via insulin pump. 70 mL 08/25/20 24 Active Active Problems Problem Noted Date Diagnosed Date H/O concussion 07/10/2022 Overview (07/10/2022): 06/17/22 CA= 17 5/12 6th concussion (soccer ball to head). No more soccer for [place]. 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 Type 1 diabetes mellitus with hyperglycemia 03/05 Overview (01/08/2023): 2004 Originally diagnosed ~ 10 months old 01/09/18 pump failure > replaced with Medtronic 571 04/30/18 A1c down to 7.1% with DexCom confidence for tighter control and more data for family to make own pump adjustments between visit. Considering replacing Medtronic pump when warranty expires, with T-Slim 07/03/18 T-slim pump began 08/06/18 A1c=7% on 0.86 U/kg/d 11/12/18 A1c=7.8% on 1.1 U/kg/d. Does not wake with DexCom sensor lows. 11/25/19 CA= 14 11/ on 0.8 U/kg/d with slowing of pubertal growth spurt, A1c=7.7% 07/10/22 CA= 17 6/12 on 0.0.7 u/kg/d A1c=7%. Pump out of warranty and only holding charge 2 days (was 7 originally) 01/08/23 CA= 18 on 0.7 U/kg/d, A1c=7.3%. Planning to travel to [place] for next school year (Jun-March) Resolved Problems Problem Noted Date Diagnosed Date Resolved Date Atypical mole 12/09/2019 03/30/2020 Overview (03/30/2020): 11/25/19 CA= 13 11/12 y/o. R foot mole with irregular margins. Advised dermatology eval with likely biopsy/excision. Patient concerned that biopsy would interrupt soccer aspirations. Healed after removal/biopsy. Encounters Date Type Department Care Team Description 11/01/2024 Refill [facility] [address] [facility] [place] [address] Tomasz Bender MD Refill Request 08/25/2024 Orders Only [facility] [address] [facility] [place] [address] Hortensia Larose, REGINALD Controlled type 1 diabetes mellitus without complication, with long-term current use of insulin (HCC) from Last 3 Months Immunizations Immunization Administration Dates Next Due FLU VACCINE TRIVALENT SINGLE DOSE(Fluvirin,Afluria) 08/09/2011 FLU VACCINE SINGLE DOSE 0.5mL(6MO+Fluzone/Flulaval/Fluarix,3Y R+Afluria) 08/19/2019,08/06/2018,09/12/2017,2013 INFLUENZA SINGLE DOSE 0.5ML 6 MONTHS AND UP 10/31/2023 Combat Stroke COVID-19 Vaccine (COM IRNATY) 12 Years And Up 10/31/2023 Family History Medical History Relation Comments Liver Disease Brother autoimmune hepat itis Parathyroid Disorder Mother Thyroid Disease Mother Relation Status Comments Brother Mother Social History Tobacco Use Types Packs/Day Years Used Date Smoking Tobacco: Never Passive Smoke Exposure: Never Smokeless Tobacco: Never Tobacco Cessation:Counseling Given: Not Answered Alcohol Use Standard Drinks/Week Comments Never 0 [...] Sign Reading Time Taken Comments Blood Pressure 120/62 04/06/2024 1:00 PM CDT Pulse 66 04/06/2024 1:00 PM CDT Temperature 36.9 C (98.4 F) 04/06/2024 1:00 PM CDT Respiratory Rate 16 04/06/2024 1:00 PM CDT Oxygen Saturation - - Inhaled Oxygen Concentration - - Weight 87.3 kg (192 lb 7.4 oz) 04/06/2024 1:00 P M CDT Height 179.9 cm (5' 10.83) 04/06/2024 1:00 PM C DT Head Circumference 51.2 cm 08/09/2011 3:10 PM CDT Body Mass Index 26.97 04/06/2024 1:00 PM CDT Plan of Treatment Health Maintenance Due Date Last Done Comments Hepatitis C Screening 2004 DTAP,TDAP or TD Vaccine (1 - Tdap) 2011 Diabetic Foot Exam 2014 HIV One Time Screening Ages 15-65 2019 HPV Vaccine (1 - Male 3-dose series) 2019 Men B Vaccine (1 of 2 - Standard) 2020 Creatinine 09/26/2022 09/26/2021 Ophthalmology Exam 09/26/2023 09/26/2022 Hepatitis B Vaccine (1 of 3 - 19+ 3-dose series) 2023 Pneumococcal Vaccine (0-5yr; and At-risk 6-49yr) (1 of 2 - PCV) 2023 Zoster Vaccine (1 of 2) 2023 Microalbumin 01/09/2024 01/08/2023, 12/05, 11/12/2018, Additional history exists Covid-19 Vaccine (6 - 2023-2 5 season) 2024 10/31/2023, 08/09/2022, 10/23/2021, Additional history exists Influenza Vaccine (#1) 2024 , 09/26/2022, 08/16/2021, Additional history exists Hemoglobin A1C Every 3 Months 07/07/2024, 10/31/2023, 06/04/2023, Additional history exists Procedures Procedure Name Priority Date/Time Associated Diagnosis Comments HEMOGLOBIN GLYCATED-IN CLINIC Routine 04/06/2024 1:42 PM CDT Controlled type 1 diabetes mellitus without complication, with long-term current use of insulin (HCC) ALBUMIN WITH ALBUMIN/CREATININE RATIO, RANDOM URINE Routine 01/08/2023 2:10 PM [employer]IPYARD PAINTER Uncontrolled type 1 diabetes mellitus with hyperglycemia, with long-term current use of insulin (HCC) DILATED EYE EXAM - OUTSIDE RESULT Routine 09/26/2022 COMPREHENSIVE METABOLIC PANEL Routine 09/26/2021 4:31 PM SHIPYARD PAINTER Type 1 diabetes mellitus with hyperglycemia (HCC) from Last 3 Months or Most Recently Relevant to Health Maintenance Results * (ABNORMAL) HEMOGLOBIN GLYCATED-IN CLINIC (04/06/2024 1:42 PM CDT) Hgb A1C 7.9(A) 4.3 - 5.7 % [facility] Blood 04/06/2024 1:42 PM CDT us Tomasz Bender MD [facility] Final Result [facility] [address] [place] [address] * MICROALBUMIN CREATININE RATIO, URINE (01/08/2023 2:10 PM SHIPYARD PAINTER) Creatinine Urine 129.09 No Reference Range Established mg/dL 01/08/2023 3:36 PM [facility] Albumin mg/L <5.00 No Reference Range Established mg/L 01/08/2023 3:36 PM [facility] Albumin/Creati nine Ratio 01/08/2023 3:36 PM [facility] Comment:Unable to calculate Microalbumin/Creatinine Ratio. Urine URINE SPECIMEN / Unknown Collection / Unknown 01/08/2023 2:10 PM SHIPYARD PAINTER 01/08/2023 2:17 PM SHIPYARD PAINTER Jitendra Guerrero MD LAB NON BLOOD Final Result [facility] [address] [place] [address] * DILATED EYE EXAM - OUTSIDE RESULT (09/26/2022) Pathologist [facility] Diabetic Eye Exam (External Result): Normal [facility] Anatomical Region Laterality Modality Other Abstract Provider OPHTHALMOLOGY SERVICES ORDERAB LES Final Result * (ABNORMAL) COMPREHENSIVE METABOLIC PANEL (09/26/2021 4:31 PM SHIPYARD PAINTER) Pathologist [facility] Glucose 313(H) 70 - 100 mg/dL 09/26/2021 4:50 PM [facility] BUN 15 5 - 20 mg/dL 09/26/2021 4:50 PM [facility] Creatinine 1.12(H) 0.30 - 1.10 mg/dL 09/26/2021 4:50 PM [facility] Sodium 140 135 - 145 meq/L 09/26/2021 4:50 PM [facility] Potassium 4.2 3.5 - 5.1 meq/L 09/26/2021 4:50 PM [facility] Chloride 104 99 - 109 meq/L 09/26/2021 4:50 PM [facility] CO2 28 22 - 34 meq/L 09/26/2021 4:50 PM [facility] Anion Gap with K 12 6 - 18 meq/L 09/26/2021 4:50 PM [facility] Calcium 9.6 8.4 - 10.2 mg/dL 09/26/2021 4:50 PM [facility] Protein Total 7.7 6.3 - 8.2 g/dL 09/26/2021 4:50 PM SHIPYARD PAINTER [facility] Albumin 4.6 3.4 - 4.8 g/dL 09/26/2021 4:50 PM SHIPYARD PAINTER [facility] Alkaline Phosphatase 140 38 - 405 U/L 09/26/2021 4:50 PM SHIPYARD PAINTER [facility] AST - SGOT 27 14 - 59 U/L 09/26/2021 4:50 PM SHIPYARD PAINTER [facility] ALT - SGPT 19 0 - 50 U/L 09/26/2021 4:50 PM SHIPYARD PAINTER [facility] Bilirubin Total 0.8 0.2 - 1.3 mg/dL 09/26/2021 4:50 PM SHIPYARD PAINTER [facility] Age 15 Years 09/26/2021 4:50 PM SHIPYARD PAINTER [facility] Fasting Unknown Yes, No, Unknown 09/26/2021 4:50 PM SHIPYARD PAINTER [facility] Blood BLOOD SPECIMEN / Unknown Venipuncture / Unknown 09/26/2021 4:31 PM SHIPYARD PAINTER 09/26/2021 4:33 PM SHIPYARD PAINTER us Jitendra Guerrero MD LAB BLOOD Final Result [facility] [address] [place] [id number] from Last 3 Months or Most Recently Relevant to Health Maintenance Care Teams Director Music Relationship Specialty Start Date End Date Provider, No Attributed, RESOURCE [address] PCP - Attributed Provider 09/04/16 Porter Yanes MD [address] [place] [address] PCP - General 09/28/19
[2024-11-22 06:09] VITALS: BP 133/77; PULSE 112; RESP 22; TEMP 36.7; O2SAT 96; BMI 27.7
--- NOTE | 2024-11-22 06:16 | ED.GENADULT ---
HPI - General Adult General Time Seen by Provider: 06:16 <Allison Vann MD - Last Filed: 11/22/24 07:54> Date Seen: 11/22/24 <Allison Vann MD - Last Filed: 11/22/24 07:54> Chief complaint: Diabetic Related Problem <Allison Vann MD - Last Filed: 11/22/24 07:54> Stated complaint: blood sugar in 400's <Allison Vann MD - Last Filed: 11/22/24 07:54> Time Seen by Provider: 11/22/24 06:16 <Allison Vann MD - Last Filed: 11/22/24 07:54> Source: patient and RN notes reviewed <Allison Vann MD - Last Filed: 11/22/24 07:54> Mode of arrival: ambulatory <Allison Vann MD - Last Filed: 11/22/24 07:54> Limitations: no limitations <Allison Vann MD - Last Filed: 11/22/24 07:54> History of Present Illness HPI narrative: Kolton is a 18-year-old type 1 diabetic coming in with concerns of his sugars continually running over 400s. He switched from NovoLog to a similar he insulin last night around 9:00 p.m.. His Dexcom keeps showing his sugars to be over 400. Around 530 this morning he had an emesis, is still feeling nauseated. He has a headache with this, dry mouth. He has not had any urinary symptoms. He denies any abdominal pain. He has not otherwise been sick. He had 1 alcoholic beverage last night. He has not had diabetic ketoacidosis that he is where of since diagnosis. He may have had it at the time of diagnosis per his report. <Allison Vann MD - Last Filed: 11/22/24 07:54> Related Data Home medications: Home Medications ?Medication ?Instructions ?Recorded ?Confirmed insulin aspart U-100 100 unit/mL subcut 09/10/24 09/10/24 subcutaneous solution (Novolog U-100 Insulin aspart) Previous Rx's ?Medication ?Instructions ?Recorded albuterol sulfate 90 mcg/actuation 2 puff inhalation Q4-6H PRN 09/10/24 aerosol inhaler shortness of breath or wheezing #6.7 grams insulin aspart U-100 100 unit/mL See Rx Instructions .Route 11/22/24 subcutaneous solution (Novolog .COMPLEX #100 mL U-100 Insulin aspart) insulin syringe-needle U-100 0.3 #100 ea 11/22/24 mL 31 gauge x 5/16 (BD Insulin Syringe Ultra-Fine) <Allison Vann MD - Last Filed: 11/22/24 07:54> Allergies/adverse reactions: Allergies Allergy/AdvReac Type Severity Reaction Status Date / Time azithromycin Allergy Verified 09/10/24 16:05 clindamycin Allergy Verified 09/10/24 16:05 Penicillins Allergy Verified 09/10/24 16:05 <Allison Vann MD - Last Filed: 11/22/24 07:54> Review of Systems Narrative: As per HPI. <Allison Vann MD - Last Filed: 11/22/24 07:54> [facility] Social History: Social History Smoking Status: Never smoker Do you use any of these nicotine containing products: None How often do you have a drink containing alcohol: never How often do you have six or more drinks on one occasion: Never AUDIT-C Alcohol total score: 0 Non-prescribed substance use: denies use service: No <Allison Vann MD - Last Filed: 11/22/24 07:54> Exam Const: Vital Signs, click to edit/add: Vital Signs - 24 hr 11/22/24 06:09 11/22/24 07:43 11/22/24 07:45 Temperature 98.0 F Pulse Rate [Pulse Oximeter] 112 H 88 Respiratory Rate 22 18 Blood Pressure [Le ft Upper Arm] 133/77 145/63 H Pulse Oximetry 96 97 98 Oxygen Delivery Me thod Room Air Room Air 11/22/24 10:03 Temperature Pulse Rate [Pulse Oximeter] 86 Respiratory Rate 16 Blood Pressure [Le ft Upper Arm] 142/77 H Pulse Oximetry 97 Oxygen Delivery Me thod Room Air This 18-year-old male is alert, interactive, no apparent distress. He is ambulatory into the ED of his own accord. He is able to speak in complete sentences, not tachypneic. Pupils equal round reactive, sclerae are clear, symmetrical facial function. Lips are dry, oral mucosa with dry membranes. Lungs are clear, no wheeze or crackles. CV regular but slightly fast, no murmur, normal S1-S2. Abdomen is soft, nontender, nondistended, no organomegaly. Skin visualize the rash. <Allison Vann MD - Last Filed: 11/22/24 07:54> Vital Signs, click to edit/add: Vital Signs - 24 hr 11/22/24 06:09 11/22/24 07:43 11/22/24 07:45 Temperature 98.0 F Pulse Rate [Pulse Oximeter] 112 H 88 Respiratory Rate 22 18 Blood Pressure [Le ft Upper Arm] 133/77 145/63 H Pulse Oximetry 96 97 98 Oxygen Delivery Me thod Room Air Room Air 11/22/24 10:03 Temperature Pulse Rate [Pulse Oximeter] 86 Respiratory Rate 16 Blood Pressure [Le ft Upper Arm] 142/77 H Pulse Oximetry 97 Oxygen Delivery Me thod Room Air <Adam Rodas DO - Last Filed: 11/22/24 13:37> Documenting provider has reviewed patient's vital signs: yes <Allison Vann MD - Last Filed: 11/22/24 07:54> Course Course ED Course: Patient's presentation is concerning for developing diabetic ketoacidosis in this type 1 diabetic. Other possible etiologies are early gastroenteritis but highly doubtful given the history. Will initiate an IV, get baseline labs, patient has already provided urinalysis. Will initiate a L of normal saline, 4 mg IV Zofran to control his nausea. It is likely that the patient is going to need to go back on regular NovoLog. <Allison Vann MD - Last Filed: 11/22/24 07:54> Reevaluation(s) Time of Reevaluation #1: 07:08 <Allison Vann MD - Last Filed: 11/22/24 07:54> Reevaluation #1: A preliminary lab reading of the glucose is 690. Patient is on his 1 L of IV fluids, 2 L to follow. We will likely be giving him some insulin at some point, he did want right away but reviewed with him that we needed to see where his electrolytes were. <Allison Vann MD - Last Filed: 11/22/24 07:54> Time of Reevaluation #2: 07:38 <Allison Vann MD - Last Filed: 11/22/24 07:54> Reevaluation #2: Have reviewed with patient his sugars 699. He has been able to drink some fluids. Have reviewed his electrolytes. We will be giving him 10 units regular insulin. He is currently getting his 2 L of IV fluids started, will order 1/3 L. We will be turning his care over to the oncoming ED physician. <Allison Vann MD - Last Filed: 11/22/24 07:54> Vital Signs Vital signs: Initial Vital Signs Temperature 98.0 F 11/22/24 06:09 Temperature Source Temporal Artery Scan 11/22/24 06:09 Pulse Rate 112 H 11/22/24 06:09 Pulse Rhythm Regular 11/22/24 06:09 Respiratory Rate 22 11/22/24 06:09 Blood Pressure 133/77 11/22/24 06:09 Blood Pressure Mean 95 11/22/24 06:09 Blood Pressure Position Sitting 11/22/24 06:09 Pulse Oximetry 96 11/22/24 06:09 Oxygen Delivery Method Room Air 11/22/24 06:09 Vital Signs Temperature 98.0 F 11/22/24 06:09 Pulse Rate 112 H 11/22/24 06:09 Respiratory Rate 22 11/22/24 06:09 Blood Pressure 133/77 11/22/24 06:09 Pulse Oximetry 96 11/22/24 06:09 Oxygen Delivery Method Room Air 11/22/24 06:09 Temperature 98.0 F 11/22/24 06:09 Pulse Rate 86 11/22/24 10:03 Respiratory Rate 16 11/22/24 10:03 Blood Pressure 142/77 H 11/22/24 10:03 Pulse Oximetry 97 11/22/24 10:03 Oxygen Delivery Method Room Air 11/22/24 10:03 <Allison Vann MD - Last Filed: 11/22/24 07:54> Initial Vital Signs Temperature 98.0 F 11/22/24 06:09 Temperature Source Temporal Artery Scan 11/22/24 06:09 Pulse Rate 112 H 11/22/24 06:09 Pulse Rhythm Regular 11/22/24 06:09 Respiratory Rate 22 11/22/24 06:09 Blood Pressure 133/77 11/22/24 06:09 Blood Pressure Mean 95 11/22/24 06:09 Blood Pressure Position Sitting 11/22/24 06:09 Pulse Oximetry 96 11/22/24 06:09 Oxygen Delivery Method Room Air 11/22/24 06:09 Vital Signs Temperature 98.0 F 11/22/24 06:09 Pulse Rate 112 H 11/22/24 06:09 Respiratory Rate 22 11/22/24 06:09 Blood Pressure 133/77 11/22/24 06:09 Pulse Oximetry 96 11/22/24 06:09 Oxygen Delivery Method Room Air 11/22/24 06:09 Temperature 98.0 F 11/22/24 06:09 Pulse Rate 86 11/22/24 10:03 Respiratory Rate 16 11/22/24 10:03 Blood Pressure 142/77 H 11/22/24 10:03 Pulse Oximetry 97 11/22/24 10:03 Oxygen Delivery Method Room Air 11/22/24 10:03 <Adam Rodas DO - Last Filed: 11/22/24 13:37> Medications Administered Medications: Discontinued Medications Generic Name Dose Route Start Last Admin Trade Name Freq PRN Reason Stop Dose Admin Sodium Chloride 1,000 mls @ 1,000 mls/hr 11/22/24 06:17 11/22/24 07:39 0.9 % Sodium Chloride 1000 Ml IV 11/22/24 07:16 Infused .Q1H MATTI Infusion Sodium Chloride 1,000 mls @ 1,000 mls/hr 11/22/24 06:45 11/22/24 08:39 0.9 % Sodium Chloride 1000 Ml IV 11/22/24 07:44 Infused .Q1H MATTI Infusion Sodium Chloride 1,000 mls @ 1,000 mls/hr 11/22/24 07:39 11/22/24 08:39 0.9 % Sodium Chloride 1000 Ml IV 11/22/24 08:38 1,000 mls/hr .Q1H MATTI Administration Insulin Human Regular 10 unit 11/22/24 07:35 11/22/24 07:56 Insulin Regular, Human 100 Unit/Ml Vial IVP 11/22/24 07:36 10 unit ONCE ONE Administration Insulin Human Regular 6 unit 11/22/24 11:50 11/22/24 11:58 Insulin Regular, Human 100 Unit/Ml Vial IVP 11/22/24 11:51 6 unit ONCE ONE Administration Ondansetron HCl 4 mg 11/22/24 06:22 11/22/24 06:34 Ondansetron 2 Mg/Ml Inj IVP 11/22/24 06:23 4 mg ONCE ONE Administration Potassium Bicarbonate 50 meq 11/22/24 09:40 11/22/24 09:54 Potassium Bicarb 25 Meq Effervescent Tab PO 11/22/24 09:41 50 meq ONCE ONE Administration <Allison Vann MD - Last Filed: 11/22/24 07:54> Discontinued Medications Generic Name Dose Route Start Last Admin Trade Name Freq PRN Reason Stop Dose Admin Sodium Chloride 1,000 mls @ 1,000 mls/hr 11/22/24 06:17 11/22/24 07:39 0.9 % Sodium Chloride 1000 Ml IV 11/22/24 07:16 Infused .Q1H MATTI Infusion Sodium Chloride 1,000 mls @ 1,000 mls/hr 11/22/24 06:45 11/22/24 08:39 0.9 % Sodium Chloride 1000 Ml IV 11/22/24 07:44 Infused .Q1H MATTI Infusion Sodium Chloride 1,000 mls @ 1,000 mls/hr 11/22/24 07:39 11/22/24 08:39 0.9 % Sodium Chloride 1000 Ml IV 11/22/24 08:38 1,000 mls/hr .Q1H MATTI Administration Insulin Human Regular 10 unit 11/22/24 07:35 11/22/24 07:56 Insulin Regular, Human 100 Unit/Ml Vial IVP 11/22/24 07:36 10 unit ONCE ONE Administration Insulin Human Regular 6 unit 11/22/24 11:50 11/22/24 11:58 Insulin Regular, Human 100 Unit/Ml Vial IVP 11/22/24 11:51 6 unit ONCE ONE Administration Ondansetron HCl 4 mg 11/22/24 06:22 11/22/24 06:34 Ondansetron 2 Mg/Ml Inj IVP 11/22/24 06:23 4 mg ONCE ONE Administration Potassium Bicarbonate 50 meq 11/22/24 09:40 11/22/24 09:54 Potassium Bicarb 25 Meq Effervescent Tab PO 11/22/24 09:41 50 meq ONCE ONE Administration <Adam Pelayo Clark, DO - Last Filed: 11/22/24 13:37> Medical Decision Making MDM Narrative Medical decision making narrative: Patient signed out to me pending repeat BMP and improving blood sugars. He has received 3 L of fluid or ready and 10 units of insulin. Repeat BMP showed a potassium of 3.2 and a blood sugar of 503. Due to the decrease in blood sugar and decrease in potassium after the insulin I am concerned he could be coming able coli make. He is not in DKA but this is still possibility of hypokalemia. Due to that I will replenish his potassium. Initially given potassium bicarbonate. After this his blood sugars seem to start increasing and. We are we are not aware of any sugars or sugar substitutes that would increase his blood sugar that is in the potassium bicarb drink provided but we will stop it. He drink about half. Will instead give him potassium chloride pills to take. I did did eventually speak to his manager of radiology isabelle. The provider available states that the patient's new insulin he was placed on is not supposed to be used with his current home but should still work. He is wondering if there might have been an accidental kink in the pump lining. I also informed him of the lower potassium. He recommended to just replenish it and get the patient other 6 units of insulin then likely discharge. States that if I am continue to be concerned about the potassium I can admit but from his standpoint he does not believe it is necessary. Did recheck another BMP and is new blood sugars 456 and repeat potassium was 4.8. I am wondering if the lower potassium on the 2nd BMP was a lab error. Either way we monitored him for another hour after his 6 units of insulin and now his blood sugar is in the 300s. Him and his mother are comfortable with discharge. I will give him a prescription for insulin syringes with needles and the NovoLog, per their request and recommendation of Endocrinology. He appears to be very well-versed and notable about his diabetes, I do believe he is trustworthy to manage his blood sugar at home appropriately and return when needed. Patient will be discharged. <Adam Rodas DO - Last Filed: 11/22/24 13:37> Lab Data Lab results reviewed: Yes I reviewed the patient's lab results <Allison Vann MD - Last Filed: 11/22/24 07:54> Labs: Lab Results 11/22/24 11/22/24 11/22/24 Range/Units 06:16 06:30 08:50 WBC 8.51 (4.50-11.00) K/uL RBC 5.23 (4.30-5.90) m/uL Hgb 15.5 (13.5-17.5) gm/dL Hct 44.8 (37.0-53.0) % MCV 86 (80-100) fL MCH 30 (26-34) pg MCHC 35 (32-36) gm/dL RDW Coeff of Chasity 11.8 (11.5-15.5) % Plt Count 196 (140-440) K/uL Neut % (Auto) 71.4 (42.0-72.0) % Lymph % (Auto) 19.7 L (20-44) % [place] % (Auto) 7.4 (0.0-11.0) % Eos % (Auto) 0.8 (0.0-7.0) % Baso % (Auto) 0.6 (0.0-3.0) % Neut # (Auto) 6.07 (1.7-7.0) K/uL Lymph # (Auto) 1.70 (0.90-2.90) K/uL [place] # (Auto) 0.60 (0.00-0.90) K/UL Eos # (Auto) 0.07 (0.00-0.50) K/uL Baso # (Auto) 0.05 (0.00-0.30) K/uL Abs Immat Gran (auto) 0.01 (0.00-0.30) K/uL Imm/Tot Granulo (auto) 0.1 % VBG pH 7.332 (7.32-7.43) VBG pCO2 49 (40-50) mmHG VBG pO2 46.0 (25-47) mmHG VBG HCO3 26 (21-28) mmol/L Sodium 134 L 138 (135-149) mmol/L Potassium 4.9 3.2 L (3.6-5.1) mmol/L Chloride 97 105 (96-114) mmol/L Carbon Dioxide 25 22 (20-32) mmol/L Anion Gap 12 11 (7-15) mEq/L BUN 27 H 26 H (5-24) mg/dL Creatinine 1.3 H 1.2 (0.6-1.2) mg/dL Estimated Creat Clear 97.34 105.45 Estimated GFR 81 89 ml/min Glucose 699 H* 503 H* (60-115) mg/dL Lactate 1.6 (0.5-1.9) mmol/L Calcium 10.3 9.5 (8.7-10.8) mg/dL Total Bilirubin 1.2 (0.1-1.5) mg/dL AST 27 (12-35) U/L ALT 20 (4-50) U/L Alkaline Phosphatase 185 (65-260) U/L Total Protein 7.2 (6.0-8.3) g/dL Albumin 4.6 (3.3-5.0) g/dL Urine Color Yellow (Yellow) Urine Appearance Clear (Clear) Urine pH 5.5 (5.0-8.5) Ur Specific [place] <= 1.005 (1.000-1.030) Urine Protein Negative (Negative) Urine Glucose (UA) 3+ A (Negative) Urine Ketones 2+ A (Negative) Urine Blood Trace-intact A (Negative) Urine Nitrite Negative (Negative) Urine Bilirubin Negative (Negative) Urine Urobilinogen 0.2 (0.2-1.0) Ur Leukocyte Esterase Negative (Negative) Urine RBC 0-2 (0-2) Urine WBC 0-2 (0-5) Ur Squamous Epith Cells None (None-Few) Urine Bacteria None (None) 11/22/24 Range/Units 11:25 WBC (4.50-11.00) K/uL RBC (4.30-5.90) m/uL Hgb (13.5-17.5) gm/dL Hct (37.0-53.0) % MCV (80-100) fL MCH (26-34) pg MCHC (32-36) gm/dL RDW Coeff of Chasity (11.5-15.5) % Plt Count (140-440) K/uL Neut % (Auto) (42.0-72.0) % Lymph % (Auto) (20-44) % [place] % (Auto) (0.0-11.0) % Eos % (Auto) (0.0-7.0) % Baso % (Auto) (0.0-3.0) % Neut # (Auto) (1.7-7.0) K/uL Lymph # (Auto) (0.90-2.90) K/uL [place] # (Auto) (0.00-0.90) K/UL Eos # (Auto) (0.00-0.50) K/uL Baso # (Auto) (0.00-0.30) K/uL Abs Immat Gran (auto) (0.00-0.30) K/uL Imm/Tot Granulo (auto) % VBG pH (7.32-7.43) VBG pCO2 (40-50) mmHG VBG pO2 (25-47) mmHG VBG HCO3 (21-28) mmol/L Sodium 135 (135-149) mmol/L Potassium 4.8 (3.6-5.1) mmol/L Chloride 104 (96-114) mmol/L Carbon Dioxide 22 (20-32) mmol/L Anion Gap 9 (7-15) mEq/L BUN 25 H (5-24) mg/dL Creatinine 1.2 (0.6-1.2) mg/dL Estimated Creat Clear 105.45 Estimated GFR 89 ml/min Glucose 456 H* (60-115) mg/dL Lactate (0.5-1.9) mmol/L Calcium 9.0 (8.7-10.8) mg/dL Total Bilirubin (0.1-1.5) mg/dL AST (12-35) U/L ALT (4-50) U/L Alkaline Phosphatase (65-260) U/L Total Protein (6.0-8.3) g/dL Albumin (3.3-5.0) g/dL Urine Color (Yellow) Urine Appearance (Clear) Urine pH (5.0-8.5) Ur Specific [place] (1.000-1.030) Urine Protein (Negative) Urine Glucose (UA) (Negative) Urine Ketones (Negative) Urine Blood (Negative) Urine Nitrite (Negative) Urine Bilirubin (Negative) Urine Urobilinogen (0.2-1.0) Ur Leukocyte Esterase (Negative) Urine RBC (0-2) Urine WBC (0-5) Ur Squamous Epith Cells (None-Few) Urine Bacteria (None) <Allison Vann MD - Last Filed: 11/22/24 07:54> Lab Results 11/22/24 11/22/24 11/22/24 Range/Units 06:16 06:30 08:50 WBC 8.51 (4.50-11.00) K/uL RBC 5.23 (4.30-5.90) m/uL Hgb 15.5 (13.5-17.5) gm/dL Hct 44.8 (37.0-53.0) % MCV 86 (80-100) fL MCH 30 (26-34) pg MCHC 35 (32-36) gm/dL RDW Coeff of Chasity 11.8 (11.5-15.5) % Plt Count 196 (140-440) K/uL Neut % (Auto) 71.4 (42.0-72.0) % Lymph % (Auto) 19.7 L (20-44) % [place] % (Auto) 7.4 (0.0-11.0) % Eos % (Auto) 0.8 (0.0-7.0) % Baso % (Auto) 0.6 (0.0-3.0) % Neut # (Auto) 6.07 (1.7-7.0) K/uL Lymph # (Auto) 1.70 (0.90-2.90) K/uL [place] # (Auto) 0.60 (0.00-0.90) K/UL Eos # (Auto) 0.07 (0.00-0.50) K/uL Baso # (Auto) 0.05 (0.00-0.30) K/uL Abs Immat Gran (auto) 0.01 (0.00-0.30) K/uL Imm/Tot Granulo (auto) 0.1 % VBG pH 7.332 (7.32-7.43) VBG pCO2 49 (40-50) mmHG VBG pO2 46.0 (25-47) mmHG VBG HCO3 26 (21-28) mmol/L Sodium 134 L 138 (135-149) mmol/L Potassium 4.9 3.2 L (3.6-5.1) mmol/L Chloride 97 105 (96-114) mmol/L Carbon Dioxide 25 22 (20-32) mmol/L Anion Gap 12 11 (7-15) mEq/L BUN 27 H 26 H (5-24) mg/dL Creatinine 1.3 H 1.2 (0.6-1.2) mg/dL Estimated Creat Clear 97.34 105.45 Estimated GFR 81 89 ml/min Glucose 699 H* 503 H* (60-115) mg/dL Lactate 1.6 (0.5-1.9) mmol/L Calcium 10.3 9.5 (8.7-10.8) mg/dL Total Bilirubin 1.2 (0.1-1.5) mg/dL AST 27 (12-35) U/L ALT 20 (4-50) U/L Alkaline Phosphatase 185 (65-260) U/L Total Protein 7.2 (6.0-8.3) g/dL Albumin 4.6 (3.3-5.0) g/dL Urine Color Yellow (Yellow) Urine Appearance Clear (Clear) Urine pH 5.5 (5.0-8.5) Ur Specific [place] <= 1.005 (1.000-1.030) Urine Protein Negative (Negative) Urine Glucose (UA) 3+ A (Negative) Urine Ketones 2+ A (Negative) Urine Blood Trace-intact A (Negative) Urine Nitrite Negative (Negative) Urine Bilirubin Negative (Negative) Urine Urobilinogen 0.2 (0.2-1.0) Ur Leukocyte Esterase Negative (Negative) Urine RBC 0-2 (0-2) Urine WBC 0-2 (0-5) Ur Squamous Epith Cells None (None-Few) Urine Bacteria None (None) 11/22/24 Range/Units 11:25 WBC (4.50-11.00) K/uL RBC (4.30-5.90) m/uL Hgb (13.5-17.5) gm/dL Hct (37.0-53.0) % MCV (80-100) fL MCH (26-34) pg MCHC (32-36) gm/dL RDW Coeff of Chasity (11.5-15.5) % Plt Count (140-440) K/uL Neut % (Auto) (42.0-72.0) % Lymph % (Auto) (20-44) % [place] % (Auto) (0.0-11.0) % Eos % (Auto) (0.0-7.0) % Baso % (Auto) (0.0-3.0) % Neut # (Auto) (1.7-7.0) K/uL Lymph # (Auto) (0.90-2.90) K/uL [place] # (Auto) (0.00-0.90) K/UL Eos # (Auto) (0.00-0.50) K/uL Baso # (Auto) (0.00-0.30) K/uL Abs Immat Gran (auto) (0.00-0.30) K/uL Imm/Tot Granulo (auto) % VBG pH (7.32-7.43) VBG pCO2 (40-50) mmHG VBG pO2 (25-47) mmHG VBG HCO3 (21-28) mmol/L Sodium 135 (135-149) mmol/L Potassium 4.8 (3.6-5.1) mmol/L Chloride 104 (96-114) mmol/L Carbon Dioxide 22 (20-32) mmol/L Anion Gap 9 (7-15) mEq/L BUN 25 H (5-24) mg/dL Creatinine 1.2 (0.6-1.2) mg/dL Estimated Creat Clear 105.45 Estimated GFR 89 ml/min Glucose 456 H* (60-115) mg/dL Lactate (0.5-1.9) mmol/L Calcium 9.0 (8.7-10.8) mg/dL Total Bilirubin (0.1-1.5) mg/dL AST (12-35) U/L ALT (4-50) U/L Alkaline Phosphatase (65-260) U/L Total Protein (6.0-8.3) g/dL Albumin (3.3-5.0) g/dL Urine Color (Yellow) Urine Appearance (Clear) Urine pH (5.0-8.5) Ur Specific [place] (1.000-1.030) Urine Protein (Negative) Urine Glucose (UA) (Negative) Urine Ketones (Negative) Urine Blood (Negative) Urine Nitrite (Negative) Urine Bilirubin (Negative) Urine Urobilinogen (0.2-1.0) Ur Leukocyte Esterase (Negative) Urine RBC (0-2) Urine WBC (0-5) Ur Squamous Epith Cells (None-Few) Urine Bacteria (None) <Adam Rodas DO - Last Filed: 11/22/24 13:37> Discharge Plan Discharge Clinical Impression: Acute hyperglycemia <Allison Vann MD - Last Filed: 11/22/24 07:54> Patient Disposition: Home, Self-Care <Allison Vann MD - Last Filed: 11/22/24 07:54> Condition: Improved <Allison Vann MD - Last Filed: 11/22/24 07:54> Instructions: Diabetic Hyperglycemia (ED) <Allison Vann MD - Last Filed: 11/22/24 07:54> Additional Instructions: Make sure to have close follow-up with your manager of radiology about your insulin issues. Please return immediately if you start developing worsening nausea, abdominal pain, lightheadedness, dizziness, increased respiratory rate or any other concerning some symptoms that could be a sign of DKA. I did send a prescription for both your insulin syringes/needles and insulin to your pharmacy. Is also recommended you switch the tubing for insulin pump. <Allison Vann MD - Last Filed: 11/22/24 07:54> Prescriptions: New (DME) insulin syringe-needle U-100 [BD Insulin Syringe Ultra-Fine] 0.3 mL 31 gauge x 5/16 syringe See Rx Instructions .Route Qty: 100 0RF Rx Instructions: As directed insulin aspart U-100 [Novolog U-100 Insulin aspart] 100 unit/mL solution See Rx Instructions .ROUTE .COMPLEX Qty: 100 1RF Rx Instructions: Use in your insulin pump as previously directed. Give yourself bolus doses of insulin as needed per previous home sliding-scale Continued insulin aspart U-100 [Novolog U-100 Insulin aspart] 100 unit/mL solution subcut No Action albuterol sulfate 90 mcg/actuation HFA aerosol inhaler 2 puff inhalation Q4-6H PRN (Reason: shortness of breath or wheezing) Qty: 6.7 0RF <Allison Vann MD - Last Filed: 11/22/24 07:54> Follow Up/Referrals: Provider,Not a Local [Primary Care Provider] - <Allison Vann MD - Last Filed: 11/22/24 07:54> Stand Alone Forms: [facility] Info Instructions <Allison Vann MD - Last Filed: 11/22/24 07:54>
[2024-11-22 06:25] LABS: Appearance Urine Clear (Clear); Bilirubin Urine Negative (Negative); Blood Urine Trace-intact (Negative); Color Urine Yellow (Yellow); Glucose Urine 3+ (Negative); Ketones Urine 2+ (Negative); Leukocyte Esterase Urine Negative (Negative); Nitrite Urine Negative (Negative); Protein Urine Negative (Negative); Specific Gravity Urine <= 1.005 (1.000-1.030); Urobilinogen Urine 0.2 (0.2-1.0); pH Urine 5.5 (5.0-8.5)
[2024-11-22 06:26] LABS: RBC Urine 0-2 (0-2); WBC Urine 0-2 (0-5)
[2024-11-22] MEDS: 0.9 % SODIUM CHLORIDE 1000 ml 1,000 ML IV ×3 (06:34→08:39)
[2024-11-22] MEDS: ONDANSETRON 2 MG/ML inj 4 MG IVP (06:34)
--- OUTSIDE RECORDS SUMMARY | 2024-11-22 06:46 | XMS_ITS | Clinical Summary ---
Author Organization [facility] [facility] Address [address] [place] [address] Care Team Providers Care Machine Packer Name Role Phone Provider, No Attributed RESOURCE Unavailable Unavailable Porter Yanes MD Primary Care Provider [phone] Allergies Active Allergy Reactions Criticality Noted Date [...] hyperglycemia, with long-term current use of insulin ([facility]) Use to check blood sugar up to 10 times daily, more if increased activity, illness, or insulin changes. 100 each 12/13/19 22 Active insulin detemir (LEVEMIR) subcutaneous injection (vial)Indications :Uncontrolled type 1 diabetes mellitus with hyperglycemia, with long-term current use of insulin ([facility]) Administer 27 units subcutaneously at bedtime (+2 units for priming); change dose as directed. 15 mL 1 04/13/20 22 Active glucagon (BAQSIMI ONE PACK) 3 MG/DOSE nasal powderIndications :Controlled type 1 diabetes mellitus without complication, with long-term current use of insulin ([facility]) [place] 3 mg into one nostril as needed (severe hypoglycemia) 1 each 3 06/04/20 23 Active glucagon, rDNA, (GLUCAGEN) 1 mg injection kitIndications:Un controlled type 1 diabetes mellitus with hyperglycemia, with long-term current use of insulin ([facility]) Inject 1 mg IM for severe low blood sugar when unable to take oral glucose. 2 each 3 06/04/20 23 Active Accu-Check Guide test stripIndications: Uncontrolled type 1 diabetes mellitus with hyperglycemia, with long-term current use of insulin ([facility]) Use to check blood sugar up to 5 times daily, more if increased activity, illness, or insulin changes. 150 each 06/10/20 23 Active acetone, urine, test (KETOSTIX) STRPIndications:U ncontrolled type 1 diabetes mellitus with hyperglycemia, with long-term current use of insulin ([facility]) Use to check urine for ketones with illness, vomiting, and/or blood sugar >300 x2. 50 Strip 3 10/03/20 23 Active ondansetron (ZOFRAN ODT) 8 mg dispersible tabletIndications :Uncontrolled type 1 diabetes mellitus with hyperglycemia, with long-term current use of insulin ([facility]) Take 1 tablet (8 mg) by mouth as needed for nausea or vomiting 10 tablet 6 10/03/20 23 Active Dexcom G7 SensorIndications :Type 1 diabetes mellitus with hyperglycemia ([facility]) Apply new sensor to be used every 10 days with Dexcom G7. 9 each 3 01/17/20 24 Active insulin aspart (NOVOLOG) subcutaneous injection (vial)Indications :Controlled type 1 diabetes mellitus without complication, with long-term current use of insulin ([facility]) Use to control blood sugar as directed. [...] 0.7 U/kg/d, A1c=7.3%. Planning to travel to [place] for next school year (Jun-March) Resolved Problems Problem Noted Date Diagnosed Date Resolved Date Atypical mole 12/09/2019 03/30/2020 Overview (03/30/2020): 11/25/19 CA= 13 11/11 y/o. R foot mole with irregular margins. Advised dermatology eval with likely biopsy/excision. Patient concerned that biopsy would interrupt soccer aspirations. Healed after removal/biopsy. Encounters Date Type Department Care Team Description 11/01/2024 Refill [facility] [address] [place] [address] Tomasz Bender MD Refill Request 08/25/2024 Orders Only [facility] [address] [place] [address] Hortensia Larose, REGINALD Controlled type 1 diabetes mellitus without complication, with long-term current use of insulin (HCC) from Last 3 Months Immunizations Immunization Administration Dates Next Due FLU VACCINE TRIVALENT SINGLE DOSE(Fluvirin,Afluria) 08/09/2011 FLU VACCINE SINGLE DOSE 0.5mL(6MO+Fluzone/Flulaval/Fluarix,3Y R+Afluria) 08/19/2019,08/06/2018,09/12/2017,2013 INFLUENZA SINGLE DOSE 0.5ML 6 MONTHS AND UP 10/31/2023 Appear Here COVID-19 Vaccine (COM IRNATY) 12 Years And [...] RATIO, RANDOM URINE Routine 01/08/2023 2:10 PM DRY MILL OPERATOR Uncontrolled type 1 diabetes mellitus with hyperglycemia, with long-term current use of insulin (HCC) DILATED EYE EXAM - OUTSIDE RESULT Routine 09/26/2022 COMPREHENSIVE METABOLIC PANEL Routine 09/26/2021 4:31 PM DRY MILL OPERATOR Type 1 diabetes mellitus with hyperglycemia (HCC) from Last 3 Months or Most Recently Relevant to Health Maintenance Results * (ABNORMAL) HEMOGLOBIN GLYCATED-IN CLINIC (04/06/2024 1:42 PM CDT) Hgb A1C 7.9(A) 4.3 - 5.7 % [facility] Blood 04/06/2024 1:42 PM CDT us Tomasz Bender MD BACK OFFICE LABS Final Result [facility] [address] [place] [address] * MICROALBUMIN CREATININE RATIO, URINE (01/08/2023 2:10 PM DRY MILL OPERATOR) Creatinine Urine 129.09 No Reference Range Established mg/dL 01/08/2023 3:36 PM [facility] Albumin mg/L <5.00 No Reference Range Established mg/L 01/08/2023 3:36 PM [facility] Albumin/Creati nine Ratio 01/08/2023 3:36 PM [facility] Comment:Unable to calculate Microalbumin/Creatinine Ratio. Urine URINE SPECIMEN / Unknown Collection / Unknown 01/08/2023 2:10 PM DRY MILL OPERATOR 01/08/2023 2:17 PM DRY MILL OPERATOR Jitendra Guerrero MD LAB NON BLOOD Final Result [facility] [address] [place] [address] * DILATED EYE EXAM - OUTSIDE RESULT (09/26/2022) Pathologist [facility] Diabetic Eye Exam (External Result): Normal [facility] Anatomical Region Laterality Modality Other Abstract Provider OPHTHALMOLOGY SERVICES ORDERAB LES Final Result * (ABNORMAL) COMPREHENSIVE METABOLIC PANEL (09/26/2021 4:31 PM DRY MILL OPERATOR) Pathologist [facility] Glucose 313(H) 70 - 100 mg/dL 09/26/2021 4:50 PM [facility] BUN 15 5 - 20 mg/dL 09/26/2021 4:50 PM [facility] Creatinine 1.12(H) 0.30 - 1.10 mg/dL 09/26/2021 4:50 PM [facility] Sodium 140 135 - 145 meq/L 09/26/2021 4:50 PM [facility] Potassium 4.2 3.5 - 5.1 meq/L 09/26/2021 4:50 PM [facility] Chloride 104 99 - 109 meq/L 09/26/2021 4:50 PM [facility] CO2 28 22 - 34 meq/L 09/26/2021 4:50 PM [facility] Anion Gap with K 12 6 - 18 meq/L 09/26/2021 4:50 PM [facility] Calcium 9.6 8.4 - 10.2 mg/dL 09/26/2021 4:50 PM [facility] Protein Total 7.7 6.3 - 8.2 g/dL 09/26/2021 4:50 PM DRY MILL OPERATOR [facility] Albumin 4.6 3.4 - 4.8 g/dL 09/26/2021 4:50 PM DRY MILL OPERATOR [facility] Alkaline Phosphatase 140 38 - 405 U/L 09/26/2021 4:50 PM DRY MILL OPERATOR [facility] AST - SGOT 27 14 - 59 U/L 09/26/2021 4:50 PM DRY MILL OPERATOR [facility] ALT - SGPT 19 0 - 50 U/L 09/26/2021 4:50 PM DRY MILL OPERATOR [facility] Bilirubin Total 0.8 0.2 - 1.3 mg/dL 09/26/2021 4:50 PM DRY MILL OPERATOR [facility] Age 15 Years 09/26/2021 4:50 PM DRY MILL OPERATOR [facility] Fasting Unknown Yes, No, Unknown 09/26/2021 4:50 PM DRY MILL OPERATOR [facility] Blood BLOOD SPECIMEN / Unknown Venipuncture / Unknown 09/26/2021 4:31 PM DRY MILL OPERATOR 09/26/2021 4:33 PM DRY MILL OPERATOR us Jitendra Guerrero MD LAB BLOOD Final Result [facility] [address] [place] [id number] from Last 3 Months or Most Recently Relevant to Health Maintenance Care Teams Machine Packer Relationship Specialty Start Date End Date Provider, No Attributed, RESOURCE [address] PCP - Attributed Provider 09/04/16 Porter Yanes MD [address] [place] [address] PCP - General 09/28/19
--- OUTSIDE RECORDS SUMMARY | 2024-11-22 06:46 | XMS_ITS | Clinical Summary ---
Author Organization [facility] Address [address] [place] [address] Care Team Providers Care Environmental Health Sanitarian Name Role Phone Self-Referral, Patient MD Primary Care Provider Source Comments You are receiving this document as you are listed as the primary care provider,follow-up provider, or the patient has been referred to you for consultation.This is in compliance with the Medicare and[facility] EHR Incentive Program,which states Providers who transition their patient to another setting of careor provider of care or refers their patient to another provider of care shouldprovide summary care record for each transition of care or referral. [facility] Active Allergy Reactions Criticality Noted Date [...] Department Care Team Description 09/30/2024 2:35 PM MS SQL SERVER DEVELOPER Lab Visit [facility] [address] [facility] [place], [place] [id number] Type 1 diabetes mellitus without complication (HRC) 09/30/2024 1:40 PM MS SQL SERVER DEVELOPER Office Visit [facility] [address] [place] [address]. [place] [address] Olegario Brunner MD Type 1 diabetes mellitus [...] Comments Blood Pressure 121/60 09/30/2024 2:25 PM MS SQL SERVER DEVELOPER Pulse 62 09/30/2024 2:25 PM MS SQL SERVER DEVELOPER Temperature - - Respiratory Rate - - Oxygen Saturation - - Inhaled Oxygen Concentration - - Weight 90.8 kg (200 lb 3.2 oz) 09/30/2024 1:44 P M MS SQL SERVER DEVELOPER Height 179.7 cm (5' 10.75) 09/30/2024 1:[address] Body Mass Index 28.12 09/30/2024 1:44 PM MS SQL SERVER DEVELOPER Plan of Treatment Upcoming Encounters Date Type Department Care Team (Late st Contact Info) Description 03/24/2025 9:15 AM CDT Appointment [place] [address] [place] [address]. [place] [address] Ponce Jones PA-C [address] [place], [place] [phone] Health Maintenance Due Date Last Done Comments [...] ALBUMIN/CREAT RATIO Routine 09/30/2024 2 :56 PM MS SQL SERVER DEVELOPER Type 1 diabetes mellitus without complication (HRC) CREATININE / GFR Routine 09/30/2024 2:37 PM MS SQL SERVER DEVELOPER Type 1 diabetes mellitus without complication (HRC) LIPID PANEL & DIRECT LDL (IF NEEDED) Routine 09/30/2024 2:37 PM MS SQL SERVER DEVELOPER Type 1 diabetes mellitus without complication (HRC) COMPLETE BLOOD COUNT-NO DIFF Routine 09/30/2024 2:37 PM MS SQL SERVER DEVELOPER Type 1 diabetes mellitus without complication (HRC) HGB A1C Routine 09/30/2024 2:37 PM MS SQL SERVER DEVELOPER Type 1 diabetes mellitus without complication (HRC) from Last 3 Months Results * Albumin/Creatinine Ratio,Random Urine (09/30/2024 2:56 PM MS SQL SERVER DEVELOPER) Albumin/Creati nine Ratio, Urine, Random 2 <30 mg/g 09/30/2024 4:27 PM MS SQL SERVER DEVELOPER [facility] 3850 LABORATORY Albumin, Urine, Random 2.2 mg/L 09/30/2024 4:27 PM [place] [address] LAB[facility]ORY Creatinine, Urine, Random 105 >20 mg/dL mg/dL 09/30/2024 4:27 PM MS SQL SERVER DEVELOPER [place] [address] LABORATORY Urine Non-blood Collection / Unknown 09/30/2024 2:56 PM MS SQL SERVER DEVELOPER 09/30/2024 2:56 PM MS SQL SERVER DEVELOPER Olegario Brunner MD LAB_1 Performing Organization Address [facility] de Phone Number [place] [phone] [place] [address] * (ABNORMAL) Lipid Panel & Direct LDL (if Needed) (09/30/2024 2:37 PM MS SQL SERVER DEVELOPER) [facility] Cholesterol 143 0 - 199 mg/dL 09/30/2024 4:30 PM [place] [address] [facility] Triglyceride 86 <=149 mg/dL 09/30/2024 4:30 PM [place] [address] [facility] HDL Cholesterol 35(L) >=40 mg/dL 4:30 PM [place] [address] [facility] LDL, Calculated 91 <130 mg/dL 4:30 PM [place] [address] [facility] Non HDL Chol, Calculated 108 <=144 mg/dL 09/30/2024 4:30 PM [place] [address]40 [facility]ORY Cholesterol/HDL Ratio 4.1 <=5.0 09/30/2024 4:30 PM [place] [address] [facility] Hours Fasting 0.0 8 - 12 Hours 09/30/2024 4:30 PM [place] [id number] [facility] Comment:Patient has indicate d a non-fasting status. Blood Venipuncture / Unknown 09/30/2024 2:37 PM MS SQL SERVER DEVELOPER 09/30/2024 2:37 PM MS SQL SERVER DEVELOPER Olegario Brunner MD LAB_1 Performing Organization Address City/[facility]/ZIP Co de Phone Number [place] [address] LABORATORY [address] [place] [address], [facility] * Creatinine / GFR (09/30/2024 2:37 PM MS SQL SERVER DEVELOPER) [facility] Creatinine 1.18 0.73 - 1.18 mg/dL 09/30/2024 4:30 PM MS SQL SERVER DEVELOPER [place] [address] [facility] GFR, Estimated >60 >60 mL/min/1.7 3m2 09/30/2024 4:30 PM MS SQL SERVER DEVELOPER [place] [address] [facility] Blood Venipuncture / Unknown 09/30/2024 2:37 PM MS SQL SERVER DEVELOPER 09/30/2024 2:37 PM MS SQL SERVER DEVELOPER Olegario Brunner MD LAB_1 Performing Organization Address [facility] Co de Phone Number [place] [address] [facility] [address] [place] [address] * (ABNORMAL) Complete Blood Count-No Diff (09/30/2024 2:37 PM MS SQL SERVER DEVELOPER) [facility] WBC 5.8 3.5 - 10.5 x10(9)/L 09/30/2024 2:56 PM MS SQL SERVER DEVELOPER [place] [address] [facility] RBC 5.25 4.32 - 5.72 x10(12)/L 09/30/2024 2:56 PM [place] [address] [facility] Hemoglobin 16.1 13.5 - 17.5 g/dL 09/30/2024 2:56 PM [place] [address] [facility] HCT 45.6 38.8 - 50.0 % 09/30/2024 2:56 PM [place] [address] [facility] MCV 86.9 80.0 - 100.0 fL 09/30/2024 2:56 PM [place] [address] [facility] MCH 30.7 27.6 - 33.3 pg 09/30/2024 2:56 PM [place] [address] [facility] MCHC 35.3(H) 31.5 - 35.2 g/dL 09/30/2024 2:56 PM [place] [address] [facility] RDW 11.9 11.9 - 15.5 % 09/30/2024 2:56 PM MS SQL SERVER DEVELOPER [place] [address] [facility] Platelets 250 150 - 450 x10(9)/L 09/30/2024 2:56 PM MS SQL SERVER DEVELOPER [place] [address] [facility] Automated NRBC 0 <=0 /100 WBC 09/30/2024 2:56 PM MS SQL SERVER DEVELOPER [facility] 3850 LABORATORY Blood Venipuncture / Unknown 09/30/2024 2:37 PM MS SQL SERVER DEVELOPER 09/30/2024 2:37 PM MS SQL SERVER DEVELOPER Olegario Brunner MD LAB_1 Performing Organization Address City/[facility]/ZIP Co de Phone Number [place] [address] LABORATORY [address] [place] [address], [facility] * (ABNORMAL) Hgb A1C (09/30/2024 2:37 PM MS SQL SERVER DEVELOPER) Hemoglobin A1C 7.1(H) <=5.6 % 10/01/2024 11:19 AM [facility] Estimated Average Glucose (Calc) 157 < 117 mg/dL 10/01/2024 11:19 AM [facility] Comment:Estimated average gl ucose (eAG) converts A1c into glucose units (mg/dL) and estimates average glucose over the past approximately 3 months. The eAG reference interval (<117 mg/dL) corresponds to an A1c of <5.7%. Blood Venipuncture / Unknown 09/30/2024 2:37 PM MS SQL SERVER DEVELOPER 09/30/2024 2:37 PM MS SQL SERVER DEVELOPER Narrative [facility] - 10/01/2024 11:19 AM MS SQL SERVER DEVELOPER For patients not previously diagnosed with diabetes: 5.7-6.4%: Increased risk for diabetes 6.5% and greater: Diagnostic for diabetes For patients diagnosed with diabetes: <8.0%: Goal of therapy for ages 18-75 Clinicians may recommend a higher or lower goal for specific individuals. Olegario Brunner MD LAB_[address] [facility] [address] [address] [address], [facility] from Last 3 Months Care Teams Environmental Health Sanitarian Relationship Specialty Start Date End Date Self-Referral, Patient, [place] [address] PCP - General 08/26/24
--- OUTSIDE RECORDS SUMMARY | 2024-11-22 06:46 | XMS_ITS ---
Author Name [employer] Organization [place] [facility] Support Name Relationship Address Phone NOT GIVEN Next of Kin [address] [place] [address] + JUANIS SUTTON Next of Kin [address] [place] [address] + ~(720 PANTERA SUTTON Next of Kin [address] [place] [address] + ~(720 URMILA Next of Kin Unknown Unavailable Pantera Sutton Next of Kin [address] [place] [address] + [place], Juanis Next of Kin [address] [place] [address] + URMILA Next of Kin Unknown Unavailable Lesley Pantera Next of Kin [address] [place] [address] + [place], Juanis Next of Kin [address] [place] [address] + URMILA Next of Kin Unknown Unavailable Pantera Sutton Next of Kin [address] [place] [address] + Lesley, Juanis Next of Kin [address] [place] [address] + CHI Next of Kin Unknown Unavailable Pantera Sutton Next of Kin [address] [place] [address] + Lesley, Juanis Next of Kin [address] [place] [address] + CHI Next of Kin Unknown Unavailable Pantera Sutton Next of Kin [address] [place] [address] + Juanis Sutton Next of Kin [address] [place] [address] + CHI Next of Kin Unknown Unavailable Pantera Sutton Next of Ernesto [address] [place] [address] + Juanis Sutton Next of Kin [address] [place] [address] + NOT GIVEN Next of Kin [address] [place] [address] + JUANIS USTTON Next of Kin [address] [place] [address] + ~(720 PANTERA SUTTON Next of Kin [address] [place] [address] + ~(720 [facility] Next of Kin Unknown Unavailable Pantera Sutton Next of Kin [address] [place] [address] + Juanis Sutton Next of Ernesto [address] [place] [address] + Care Team Providers Care Running Rigger Name Role Phone Nikita Willson Attending Physician Porter Lopez Primary Care Physician Porter Martinez Attending Physician Porter Giang Primary Care Physician Porter Martinez Attending Physician Porter Giang Primary Care Physician Letyva ilSnow Rae Attending Physician Porter Abrams Primary Care Physician Unava ilSnow Rae [...] left upper limb / R22.32(ICD-10) Snow Corona [facility] 03/31/2024 Final Diagnosis (Discharge) Follicular cyst of the skin and subcutaneous tissue, unspecified / L72.9(ICD-10) Nikita Willson 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 RESULTS GENERAL SURGERY VISIT Observed: 07/02/20 24 9:43 AM Status: F Source: [employer] REPOSITORY VIEWING DISCLAIMER Tables generated from host system lose formatting upon transmission to destination. Please consult the Document and Results tab for additional information. [facility] Specialty [place] Patient: Kolton Sutton [address] [place] [address] : 2005 Age/Sex: 18 / [place] [address] Status: DEP AMB P#: [phone] F#: Loc: CB.CBSURCL Acct: [id number] Visit Date: 07/02/24 MR:[id number] General Surgery Visit Date of Service: 07/02/24 [...] Dictation Comment: This document was transcribed utilizing oqaehc-vu-nggt technology ([employer] This may result in occasional mistranslation. Appointment [...] getting better over time. He has full application lead strength. Vital Signs 07/02/24 09:49 BP 108/72 [...] and written Learning barriers: none Primary language: Jordanian Snow Corona MD <Electronically signed by Snow Corona MD> 07/02/24 1039 cc: CHAITANYA; : Document Initialized On: 07/02/24 0943 OPERATIVE NOTE Observed: 06/23/2024 12:15 PM Status: F [facility] [place] [address] REPOSITORY VIEWING DISCLAIMER Tables generated from host system lose formatting upon transmission to destination. Please consult the Document and Results tab for additional information. [facility] Patient: Kolton Sutton [address] [place] [address] : 2005 Age/Sex: 18 / M [place] [address] Status: REG SDS P#: [phone] F#: Loc: .[facility] Attending: Snow Corona MD Acct: [id number] Adm Date: 06/23/24 [facility] Date: MR:[id number] Operative Note Date of Service: 06/23/24 1215 [...] mass as well. He will call his cryptozoologist for recommendations on his insulin. All questions [...] Dictation Comment: This document was transcribed utilizing rxjzqr-qm-uobv technology ([employer] software). This may result in occasional mistranslation. Snow Corona MD <Electronically signed by Snow Corona MD> 06/23/24 1219 cc: ROBERTO CARLOS FLORIAN; : Document Initialized On: 06/23/24 1215 GENERAL SURGERY VISIT Observed: 06/18/20 10:10 AM Status: F Source: [place] [address] REPOSITORY VIEWING DISCLAIMER Tables generated from host system lose formatting upon transmission to destination. Please consult the Document and Results tab for additional information. [facility] [place] Patient: Kolton Sutton [address] [place] [address] : 2005 Age/Sex: 18 / M [place], [place] [address] Status: DEP AMB P#: [phone] F#: Loc: CB.CBSURCL Attending: Snow Corona MD Acct: [id number] Adm Date: 06/18/24 [facility] Date: 06/18/24 MR:[id number] General Surgery Visit Date of Service: 06/18/24 [...] mass as well. He will call his cryptozoologist for recommendations on his insulin. All questions were answered. Patient was in agreement with plan. Dictation Comment: This document was transcribed utilizing ofathm-az-xgwe technology ([employer] software). This may result in occasional mistranslation. 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 Please consult the Document and Results tab for additional information. Access [facility] [place] Patient: Kolton Sutton [address] [place] [address] : 2005 Age/Sex: 18 / [place] [address] Status: DEP AMB P#: [phone] F#: Loc: .BWFPCL Attending: Nikita Willson DO Acct: [id number] Adm Date: 03/31/24 [facility] Date: 03/31/24 MR:[id number] Family Medicine Visit Date of Service: 03/31/24 1002 ADDENDUM Office Procedure Documentation entered by Juanis Mckeon RN 03/31/24 16:21: Office Meds lidocaine 1 %-epinephrine 1:100,000 injection solution Performing Provider: Nikita Willson DO Performing Location: [facility] Administered by: Juanis Mckeon RN on 03/31/24 16:19 Dose Route Admin Location Dispensed Lot Number Expiration Date [facility] Man ufacturer 2.5 mL subcut Left forearm 2.5 mL [id number] 01/31/25 10971-249-21 DEQUAN Mckeon RN cc: [id number] 1621 Assessment [...] 03/31/24 11:44 Weight 86 kg Weight calculated (Jordanian) 189.6 lb BP 118/68 Blood pressure location right arm Blood pressure position/source sitting - manual cuff BP cuff size adult Temp 98.2 F Temperature source temporal Pulse 72 Respiration 16 Pulse oximetry 98 Oxygen delivery method room air Exam Objective/Exam: Constitutional Patient is an established patient. [facility] Active Problems (Updated 01/28/23 @ 16:13 by [...] US in the past 21 days: Yes ([place] ) Travel symptoms: none Smoking tobacco status: [...] and written Learning barriers: none Primary language: Jordanian Nikita Willson DO <Electronically signed by Nikita Willson DO> 03/31/24 1442 cc: ; : Document Initialized On: 03/31/24 1002 SURGICAL Observed: 03/31/2024 12:00 AM Status: COMPLETED Source: [employer] REPOSITORY ----- ------- RUN DATE: 04/03/24 [place] [employer]* - LAB PAGE 1 RUN TIME: 954 Specimen Inquiry ----- ------- PATIENT: Kolton Sutton ACCT: [id number] LOC: .BWFPCL U: [id number] AGE/SX: 18/M ROOM: RE03/31/[address]: Nikita Willson DO : 2005 BED: DIS: STATUS: MARY JANE CELAYA TLOC: ----- ------- SPEC : [id number] RECD: 04/01/24 STATUS: [facility] NUM: [id number] ROLANDO: 03/31/24- SUBM DR: Nikita Willson DO ENTERED: 04/01/24 SP TYPE: Surgical OT DR: ORDERED: [id number] CODES: Cyst, NOS PROCEDURES: 48640 (04/01/24) TISSUES: 1. Cyst, NOS PATHOLOGY REPORT: [...] evidence of malignancy. TECHNICAL BILLING CODES (CPT): 96646 X 1 PROFESSIONAL BILLING CODES (CPT): 56227 X 1 Printed: 04/03/2024 9:54 AM YAJAIRA AQUINO MD 04/03/2024 09:54 Electronic Signature CONTINUED ON NEXT PAGE ----- ------- RUN DATE: 04/03/24 [place] *Live* - LAB PAGE 2 RUN TIME: 954 Specimen Inquiry ----- ------- SPEC: [id number] PATIENT: Kolton Sutton [id number] (Continued) ----- ------- ----- ------- Signed Yajaira Aquino MD 04/03/24 0955 ----- ------- END OF REPORT Performed By: #### S #### Hermila [address] [address] ALLERGIES DATE TYPE / CODE NAME / CODE REACTION SEVERITY SOURCE 07/02/2024 Drug Allergy/416 752061(SNOM ED CT) Penicillins/[id number] 6(RXNORM) Hives Severe (Severity Modifier) (Qualifier Value) [facility] 07/02/2024 Drug Allergy/416 857810(SNOM ED CT) clindamycin/Z02128764 4(RXNORM) Hives Severe (Severity Modifier) (Qualifier Value) [facility] 07/02/2024 Drug Allergy/416 876403(SNOM ED CT) azithromycin/L7248321 35(RXNORM) lip swelling Mild (Qualifier Value) [facility] 09/21/2020 DRUG INGREDI/419 209242(SNOM ED CT) AZITHROMYCIN HYDROGENCITRATE Other [facility] 01/09/2018 Environ/420 809697(SNOM ED CT) PLANTS Positive Lab [facility] 01/09/2018 DRUG INGREDI/419 667080(SNOM ED CT) MOLDS AND SMUTS Positive Lab [facility] 09/11/2013 DRUG INGREDI/419 782417(SNOM ED CT) CLINDAMYCIN Rash [facility] 08/09/2011 Drug Class/01455 1003(SNOMED CT) PENICILLIN HIVES [facility] ENCOUNTERS ADMIT/DISCHARGE ACCOUNT NUMBER ADMITTING ENCOUNTER CLASS LOCATION SOURCE 10/02/2024 [id number] Ambulatory Building:[facility]ILD [facility] PBBRoom: [address] [facility] 07/02/2024/07/02/20 24 [id number] [facility]ulatory [facility]CB.OL[facility]IER [facility] 06/23/2024/06/23/20 24 [id number] Ambulatory SBuilding:BBSammy Salazar [facility] 06/23/2024 [id number] Ambulatory [facility] SpecialtyBuilding :CB.ALVARO [facility] 06/18/2024/06/18/20 24 [id number] Ambulatory [facility] :CB.OLIVIER [facility] 06/12/2024 [id number] [facility] [place] [facility] 04/07/2024/04/07/20 24 [id number] [facility] 04/06/2024/04/06/20 24 [id number] Ambulatory Building:CHILDRE N S SPECIALTY ENDOCRINOLOGY PBBRoom: [address] [facility] 03/31/2024/03/31/20 24 [id number] [facility] :BW.BWFPCL [facility] PAYERS ENCOUNTER GUARANTOR PAYER SUBSCRIBER SOURCE 10/02/2024 Primary Insuranc e:[facility] [place] ALMANZAPolicy Number: [id number] Date:1486-57-36Sgkj Name:Marisa Levine WINGATEDOB: [id number] [place] [address] [facility] 07/02/2024 Kolton [id number], [place] [address]Kke: (HP) Primary Insurance:[facility] 141Policy Number: [id number] Date:2507-97-22[address] [address]RM: Pantera Barr WingateDOB: [id number] [place] [address]Fnb: (HP) [facility] 07/02/2024 Kolton [id number], [place] [address]Apo: (HP) Secondary Insurance:Self PayPolicy Number: Effective Date:2024-06-23 NOT GIVENUNK [facility] 06/23/2024 Kolton [id number], [place] [address]Qel: (HP) Primary Insurance:[facility] 141Policy Number: [id number] Date:4587-61-52BG [address] [address]PH: Pantera Barr WingateDOB: [id number] [place] [address]Nhr: (HP) [facility] 06/23/2024 Kolton [id number], [place] [address]Jym: (HP) Secondary Insurance:Self PayPolicy Number: Effective Date:2024-06-22 NOT GIVENUNK [facility] 06/23/2024 Kolton [id number], [place] [address]Nxf: (HP) Primary Insurance:[facility] 141Policy Number: [id number] Date:0012-31-13NJ [address] [address]QY: Pantera Barr WingateDOB: [id number] [place] [address]Wdp: (HP) [facility] 06/23/2024 Kolton [id number], [place] [address]Kai: (HP) Secondary Insurance:Self PayPolicy Number: Effective Date:2024-06-23 NOT GIVENUNK [facility] 06/18/2024 Kolton [id number], [place] [address]Ylo: (HP) Primary Insurance:[facility] 141Policy Number: [id number] Date:0243-21-99NO [address] [address]ND: Pantera Rowejinny ReyesateDOB: [id number] [place] [address]Mnp: (HP) [facility] 06/18/2024 Kolton [id number], [place] [address]Vjq: (HP) Secondary Insurance:Self PayPolicy Number: Effective Date:2024-06-16 NOT GIVENUNK [facility] 06/12/2024 Kolton [id number], [place] [address]Rti: (HP) Primary Insurance:[facility] 141Policy Number: [id number] Date:0379-92-55DZ [address], [place] [address]IX: Pantera ReyesateDOB: [id number] [place] [address]Nbh: (HP) [facility] 06/12/2024 Kolton [id number], [place] [address]Eet: (HP) Secondary Insurance:Self PayPolicy Number: Effective Date:2024-06-11 NOT GIVENUNK [facility] 04/07/2024 Kolton [id number], [place] [address]Aev: (HP) Primary Insurance:[facility] 141Policy Number: [id number] Date:4673-59-91ID [address] [address]QR: Pantera Barr ateDOB: [id number] [place] [address]Ams: (HP) [facility] 04/07/2024 Kolton [id number], [place] [address]Eak: (HP) Secondary Insurance:Self PayPolicy Number: Effective Date:2024-04-03 NOT GIVENUNK [facility] 04/06/2024 Primary Insuranc e:[facility] [place] SHETTYBALSAMUsmany Number: [id number] Date:8006-50-04Gpze Name:Marisa REYESATEDOB: [id number] [place] [address] [facility] 03/31/2024 Kolton [id number], [place] [address]Hbt: (HP) Primary Insurance:[facility] 141Policy Number: [id number] Date:5470-13-14NK [address] [address]UC: Pantera Barrettolas WingateDOB: [id number] [place] [address]Idn: () [facility] 03/31/2024 Kolton [id number] [place] [address]Vhh: () Secondary Insurance:Self PayPolicy Number: Effective Date:2024-03-31 NOT GIVENUNK [facility]
--- OUTSIDE RECORDS SUMMARY | 2024-11-22 06:46 | XMS_ITS | Encounter Summary ---
Author Organization [facility] Address [address] [place] [address] Care Team Providers Care Programming Specialist Name Role Phone Provider, No Attributed RESOURCE Unavailable Unavailable Porter Yanes MD Primary Care Provider [phone]- [phone] Reason for Visit * Reason Comments Refill Request Encounter Details Date Type Department Care Team (Late st Contact Info) Description 11/01/2024 Refill [facility] [address] [facility] [place] [address] Tomasz Bender MD [address] [facility] [place] [address] Refill Request Social History Tobacco Use Types [...] (HCC) documented in this encounter Care Teams Programming Specialist Relationship Specialty Start Date End Date Provider, No Attributed, RESOURCE [address] PCP - Attributed Provider 09/04/16 Porter Yanes MD [address] [place], [place] [address] PCP - General 09/28/19 documented as of this encounter
[2024-11-22 06:53] LABS: Basophils Absolute Auto 0.05 K/uL (0.00-0.30); Basophils Percent Auto 0.6 % (0.0-3.0); Eosinophils Absolute Auto 0.07 K/uL (0.00-0.50); Eosinophils Percent Auto 0.8 % (0.0-7.0); Hematocrit 44.8 % (37.0-53.0); Hemoglobin* 15.5 gm/dL (13.5-17.5); Immature Granulocytes Abs Auto 0.01 K/uL (0.00-0.30); Immature Granulocytes Pct Auto 0.1 %; Lymphocytes Percent Auto 19.7 % (20-44); Mean Corpuscular HGB Conc 35 gm/dL (32-36); Mean Corpuscular Hemoglobin 30 pg (26-34); Mean Corpuscular Volume 86 fL (80-100); Monocytes Percent Auto 7.4 % (0.0-11.0); Neutrophils Absolute Auto 6.07 K/uL (1.7-7.0); Neutrophils Percent Auto 71.4 % (42.0-72.0); Platelet Count* 196 K/uL (140-440); RDW Coefficient of Variation % 11.8 % (11.5-15.5); Red Blood Count 5.23 m/uL (4.30-5.90); White Blood Count* 8.51 K/uL (4.50-11.00)
[2024-11-22 07:03] LABS: HCO3 VBG 26 mmol/L (21-28); Lactate* 1.6 mmol/L (0.5-1.9); PCO2 VBG 49 mmHG (40-50); pH VBG 7.332 (7.32-7.43)
[2024-11-22 07:04] LABS: Slide Review Reflex No
[2024-11-22 07:19] LABS: Albumin* 4.6 g/dL (3.3-5.0)
[2024-11-22 07:20] LABS: Chloride* 97 mmol/L (96-114); Potassium* 4.9 mmol/L (3.6-5.1); Sodium* 134 mmol/L (135-149)
[2024-11-22 07:22] LABS: Anion Gap 12 mEq/L (7-15); Aspartate Amino Transferase* 27 U/L (12-35); Bilirubin Total* 1.2 mg/dL (0.1-1.5); Carbon Dioxide* 25 mmol/L (20-32); Creatinine* 1.3 mg/dL (0.6-1.2); Est. Creatinine Clearance* 97.34; Estimated Glomerular Filt Rate 81 ml/min; Total Protein* 7.2 g/dL (6.0-8.3)
[2024-11-22 07:23] LABS: Alanine Aminotransferase* 20 U/L (4-50); Alkaline Phosphatase* 185 U/L (65-260); Blood Urea Nitrogen* 27 mg/dL (5-24); Calcium* 10.3 mg/dL (8.7-10.8)
[2024-11-22 07:33] LABS: Glucose* 699 mg/dL (60-115)
[2024-11-22 07:43] VITALS: BP 145/63; PULSE 88; RESP 18; O2SAT 97
[2024-11-22 07:45] VITALS: O2SAT 98
[2024-11-22] MEDS: INSULIN REGULAR, HUMAN 100 UNIT/ML VIAL 10 UNIT IVP (07:56)
[2024-11-22 09:24] LABS: Chloride* 105 mmol/L (96-114); Potassium* 3.2 mmol/L (3.6-5.1); Sodium* 138 mmol/L (135-149)
[2024-11-22 09:27] LABS: Anion Gap 11 mEq/L (7-15); Blood Urea Nitrogen* 26 mg/dL (5-24); Calcium* 9.5 mg/dL (8.7-10.8); Carbon Dioxide* 22 mmol/L (20-32); Creatinine* 1.2 mg/dL (0.6-1.2); Est. Creatinine Clearance* 105.45; Estimated Glomerular Filt Rate 89 ml/min
[2024-11-22 09:30] LABS: Glucose* 503 mg/dL (60-115)
[2024-11-22] MEDS: POTASSIUM BICARB 25 MEQ EFFERVESCENT TAB 50 MEQ PO (09:54)
[2024-11-22 10:03] VITALS: BP 142/77; PULSE 86; RESP 16; O2SAT 97
[2024-11-22 11:49] LABS: Chloride* 104 mmol/L (96-114); Potassium* 4.8 mmol/L (3.6-5.1); Sodium* 135 mmol/L (135-149)
[2024-11-22 11:52] LABS: Anion Gap 9 mEq/L (7-15); Carbon Dioxide* 22 mmol/L (20-32); Creatinine* 1.2 mg/dL (0.6-1.2); Est. Creatinine Clearance* 105.45; Estimated Glomerular Filt Rate 89 ml/min
[2024-11-22 11:53] LABS: Blood Urea Nitrogen* 25 mg/dL (5-24)
[2024-11-22] MEDS: INSULIN REGULAR, HUMAN 100 UNIT/ML VIAL 6 UNIT IVP (11:58)
[2024-11-22 12:00] LABS: Glucose* 456 mg/dL (60-115)
[2024-11-22 13:48] VITALS: BP 137/74; PULSE 76; RESP 18; O2SAT 98
== END 2024-11-22 13:46 | disposition home or self-care (01) ==
PROVIDERS: Family Medicine; Emergency Provider Student in an Organized Health Care Education/Training Program
DX: E10.65 Type 1 diabetes mellitus with hyperglycemia (principal)
CPT/HCPCS: 36415; 80048; 80053; 81001; 82803; 82962; 83605; 85025; 94761; 96374; 99284; 99285; A9270; J1815; J2405; J7030

== ENCOUNTER 2025-08-27 17:40 | Emergency (ER) | payer BC, SELFPAY ==
[2025-08-27 17:43] VITALS: BP 119/75; PULSE 84; RESP 16; TEMP 36.4; O2SAT 98; BMI 27.2
--- NOTE | 2025-08-27 17:48 | ED.GENADULT ---
HPI - General Adult General Chief complaint: Ear/Nose/Throat Problem Stated complaint: Ear infection, sore throat, fatigue Time Seen by Provider: 08/27/25 17:45 History of Present Illness HPI narrative: Pt reports ongoing ear infection issues for several weeks?months. Pt also complains of ongoing severe sore throat for the last week. Pt was tested for strep at yesterday and was negative. 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 Pt is also concerned about a rash on his hand that lasted for a few days but is completely resolved now. 19 year old young man presenting to the emergency department with concern of ongoing infection. Has been treated with multiple rounds of cefdinir over the last few months including a couple rounds of prednisone with this. Over the last week has had rather severe sore throat. Urgent Care test yesterday was negative for strep. Underlying history of type 1 diabetes. His blood sugars have been little bit elevated to 250-300 though if he is not eating than they drop into the normal range she would expect. Automated insulin dosing. 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 There was a brief rash on his left index finger and adjacent finger present for few days but now essentially gone. Describes it like inflamed bumps almost a blister. No fever. No cough. No shortness of breath. He can get some wheeze with illness. Does continue to have some left ear discomfort. Related Data Home Medications ?Medication ?Instructions ?Recorded ?Confirmed insulin aspart U-100 100 unit/mL subcut 09/10/24 08/25/25 subcutaneous solution (Novolog U-100 Insulin aspart) acetone (urine) test (Ketostix #25 ea 08/25/25 08/25/25 strips) blood-glucose sensor (Dexcom G7 #1 ea 08/25/25 08/25/25 Sensor device) fluticasone propionate 50 2 spray intranasal DAILY 08/25/25 08/25/25 mcg/actuation nasal spray,suspension insulin aspart (niacinamide) 88 unit subcut DAILY 08/25/25 08/25/25 (U-100) 100 unit/mL subcutaneous solution (Fiasp U-100 Insulin) sulfamethoxazole 800 1 tab PO BID 08/25/25 08/25/25 mg-trimethoprim 160 mg tablet Previous Rx's ?Medication ?Instructions ?Recorded albuterol sulfate 90 mcg/actuation 2 puff inhalation Q4-6H PRN 09/10/24 aerosol inhaler shortness of breath or wheezing #6.7 grams insulin aspart U-100 100 unit/mL See Rx Instructions .Route 11/22/24 subcutaneous solution (Novolog .COMPLEX #100 mL U-100 Insulin aspart) insulin syringe-needle U-100 0.3 #100 ea 11/22/24 mL 31 gauge x 5/16 (BD Insulin Syringe Ultra-Fine) Allergies Allergy/AdvReac Type Severity Reaction Status Date / Time azithromycin Allergy Verified 08/25/25 14:37 clindamycin Allergy Verified 08/25/25 14:37 Penicillins Allergy Verified 08/25/25 14:37 Review of Systems Status of ROS: Reports: 6 or more systems reviewed and unremarkable except as noted in History and below [facility] Social History Smoking Status: Never smoker Do you use any of these nicotine containing products: None How often do you have a drink containing alcohol: never How often do you have six or more drinks on one occasion: Never AUDIT-C Alcohol total score: 0 Non-prescribed substance use: denies use service: No Exam Narrative: Exam Narrative: A couple a thin semi circular darkening so on the radial side index finger. Oropharynx is moist with minimal erythema posteriorly with little tonsillar edema and points of exudate 1 noticed on the left tonsil in particular. Neck with mild anterior cervical lymphadenopathy. No posterior cervical lymphadenopathy. Lungs are clear other than neck trace in clearing wheeze in the left lower lung field. Heart in regular rate and rhythm without murmur rub or gallop. He is well nourished well muscled. No oral blisters. Left TM is pink centrally though clearing around the periphery. Little dulled centrally. Right TM is essentially normal Const: Vital Signs, click to edit/add: Vital Signs - 24 hr 08/27/25 17:43 Temperature 97.6 F Pulse Rate [Pulse Oximeter] 84 Respiratory Rate 16 Blood Pressure [Ri ght Upper Arm] 119/75 Pulse Oximetry 98 Oxygen Delivery Me thod Room Air Documenting provider has reviewed patient's vital signs: yes Course Vital Signs Vital signs: Initial Vital Signs Temperature 97.6 F 08/27/25 17:43 Temperature Source Temporal Artery Scan 08/27/25 17:43 Pulse Rate 84 08/27/25 17:43 Respiratory Rate 16 08/27/25 17:43 Blood Pressure 119/75 08/27/25 17:43 Blood Pressure Mean 89 08/27/25 17:43 Blood Pressure Position Sitting 08/27/25 17:43 Pulse Oximetry 98 08/27/25 17:43 Oxygen Delivery Method Room Air 08/27/25 17:43 Vital Signs Temperature 97.6 F 08/27/25 17:43 Pulse Rate 84 08/27/25 17:43 Respiratory Rate 16 08/27/25 17:43 Blood Pressure 119/75 08/27/25 17:43 Pulse Oximetry 98 08/27/25 17:43 Oxygen Delivery Method Room Air 08/27/25 17:43 Temperature 97.6 F 08/27/25 17:43 Pulse Rate 84 08/27/25 17:43 Respiratory Rate 16 08/27/25 17:43 Blood Pressure 119/75 08/27/25 17:43 Pulse Oximetry 98 08/27/25 17:43 Oxygen Delivery Method Room Air 08/27/25 17:43 Medical Decision Making MDM Narrative Medical decision making narrative: With noted IgA deficiency would be prone to mucosal infections/pharyngitis/gastrointestinal infections. I think this most likely represents viral URI and pharyngitis at this point. I would though screen for COVID and maybe influenza as we are able to do this. He does have concerns of mononucleosis potentially and I think that is a very reasonable thing to screen for as well. Otherwise appears generally well. Does not appear to be symptoms consistent with pneumonia. Pharyngitis/tonsillitis symptoms and physical exam did not appear to be suggesting an abscess. Do not see an active ear infection at this point. Does not feel that he needs any treatment at this time. With immunosuppression will also check CBC. CBC returns of normal white count with lymphocytic predominance. COVID and influenza is negative as is RSV. Monospot test is indeed positive Stable over time in the emergency department. See patient discharge plan for further discussion Stay well-hydrated. Consider sleeping under the mist of a cool mist humidifier. Prescribing you a course of prednisone from [facility] with some extras to have on hand in the future. I wonder if some of your left ear pain is referred from your throat? I would consider taking pseudoephedrine for further decongestion. I like the 12 hour formulation myself. Monitor for increasing upper abdominal discomfort. Would avoid contact sports over the next couple of weeks. Might try anesthetic throat sprays or lozenges like Chloraseptic or Sucrets. Medical Records Medical records reviewed: Yes I reviewed the patient's medical records Lab Data Labs: Lab Results 08/27/25 08/27/25 Range/Units 17:45 18:47 WBC 7.50 (4.50-11.00) K/uL RBC 4.87 (4.30-5.90) m/uL Hgb 14.3 (13.5-17.5) gm/dL Hct 42.4 (37.0-53.0) % MCV 87 (80-100) fL MCH 29 (26-34) pg MCHC 34 (32-36) gm/dL RDW Coeff of Chasity 12.8 (11.5-15.5) % Plt Count 207 (140-440) K/uL Neut % (Auto) 21.8 L (42.0-72.0) % Lymph % (Auto) 71.7 H (20-44) % Gage % (Auto) 5.1 (0.0-11.0) % Eos % (Auto) 0.7 (0.0-7.0) % Baso % (Auto) 0.7 (0.0-3.0) % Neut # (Auto) 1.60 L (1.7-7.0) K/uL Lymph # (Auto) 5.40 H (0.90-2.90) K/uL Gage # (Auto) 0.40 (0.00-0.90) K/UL Eos # (Auto) 0.05 (0.00-0.50) K/uL Baso # (Auto) 0.05 (0.00-0.30) K/uL Abs Immat Gran (auto) 0.00 (0.00-0.30) K/uL Imm/Tot Granulo (auto) 0.0 % Diff Slide Review Acceptable Review (Acceptable) SARS-CoV-2 (PCR) Negative SARS-CoV-2 (Negative) Monoscreen POSITIVE A (Negative) Influenza Type A (PCR) Negative PCR FLU A (Negative) Influenza Type B (PCR) Negative PCR FLU B (Negative) RSV (PCR) Negative PCR RSV (Negative) Discharge Plan Discharge Clinical Impression: Mononucleosis, Acute tonsillitis Patient Disposition: Home, Self-Care Condition: Stable Instructions: Mononucleosis (ED) Additional Instructions: Stay well-hydrated. Consider sleeping under the mist of a cool mist humidifier. Prescribing you a course of prednisone from [facility] with some extras to have on hand in the future. I wonder if some of your left ear pain is referred from your throat? I would consider taking pseudoephedrine for further decongestion. I like the 12 hour formulation myself. Monitor for increasing upper abdominal discomfort. Would avoid contact sports over the next couple of weeks. Might try anesthetic throat sprays or lozenges like Chloraseptic or Sucrets. Prescriptions: No Action sulfamethoxazole-trimethoprim 800-160 mg tablet 1 tab PO BID fluticasone propionate 50 mcg/actuation spray,suspension 2 spray intranasal DAILY (DME) Ketostix Strip See Rx Instructions .ROUTE .MEDSUPPLY Qty: 25 Patient Comments: [NO ORIGINAL SIG] Rx Instructions: As directed (DME) Dexcom G7 Sensor Device See Rx Instructions .ROUTE Q10D Qty: 1 Rx Instructions: As directed Fiasp U-100 Insulin 100 unit/mL solution 88 unit subcut DAILY insulin aspart U-100 [Novolog U-100 Insulin aspart] 100 unit/mL solution subcut albuterol sulfate 90 mcg/actuation HFA aerosol inhaler 2 puff inhalation Q4-6H PRN (Reason: shortness of breath or wheezing) Qty: 6.7 0RF (DME) insulin syringe-needle U-100 [BD Insulin Syringe Ultra-Fine] 0.3 mL 31 gauge x 5/16 syringe See Rx Instructions .Route Qty: 100 0RF Rx Instructions: As directed insulin aspart U-100 [Novolog U-100 Insulin aspart] 100 unit/mL solution See Rx Instructions .ROUTE .COMPLEX Qty: 100 1RF Rx Instructions: Use in your insulin pump as previously directed. Give yourself bolus doses of insulin as needed per previous home sliding-scale Follow Up/Referrals: Provider,Not a Local [Primary Care Provider, Family Practice] Stand Alone Forms: MyHealth Info Instructions
--- OUTSIDE RECORDS SUMMARY | 2025-08-27 18:20 | XMS_ITS | Clinical Summary ---
[facility] Address [address] [address] Care Team Providers Care Caser Up Name Role Phone Self-Referral, Patient MD Primary Care Provider Source Comments You are receiving this document as you are listed as the primary care provider,follow-up provider, or the patient has been referred to you for consultation.This is in compliance with the Medicare and[facility] EHR Incentive Program,which states Providers who transition their patient to another setting of careor provider of care or refers their patient to another provider of care shouldprovide summary care record for each transition of care or referral. [facility] Allergies Active Allergy Reactions Criticality Noted Date Comments Azithromycin Hives High 09/30/2024 Clindamycin Hives High 09/30/2024 Penicillins Hives High 09/30/2024 Medications insulin syringe-needle U-100 0.3ml 31g x 15/64 Use to inject insulin daily as instructed. 100 Each 3 4 09/30/20 25 Active Dexcom G7 Sensor continuous blood glucose deviceIndications :Type 1 diabetes mellitus without complication (HRC) APPLY NEW SENSOR EVERY 10 DAYS 9 Each 3 5 Active Dexcom G7 Sensor continuous blood glucose deviceIndications :Type 1 diabetes mellitus without complication (HRC) APPLY NEW SENSOR EVERY 10 DAYS 9 Each 3 5 Active insulin aspart (NOVOLOG) 100 UNIT/ML injection (vial)Indications :Type 1 diabetes mellitus without complication (HRC),Insulin pump status (HRC) Use up to 80 units via insulin pump daily 90 mL 2 Active Active Problems Problem Noted Date Diagnosed Date Type 1 diabetes mellitus without complication IgA deficiency 09/30/2024 Encounters Date Type Department Care Team Description 07/08/2025 Telephone [facility] [address] End[address] [place] [address] Cyn Bales PA-C Forms (Chart notes - Adapt) from Last 3 Months Social History Tobacco Use Types Packs/Day Years Used Date Smoking Tobacco: Never Smokeless Tobacco: Former Snuff Tobacco Cessation:Counseling Given: Not Answered Alcohol Use Standard Drinks/Week Comments Yes 0 (1 standard drink = 0.6 oz pur e alcohol) 1 Sex and Gender Information Value Date Recorded Sex Assigned at Not on file Legal Sex Male 11:26 AM CDT Gender Identity Not on file Sexual Orientation Not on file Last Filed Vital Signs Vital Sign Reading Time Taken Comments Blood Pressure 119/71 05/18/2025 2:15 PM CDT Pulse 61 05/18/2025 2:15 PM CDT Temperature - - Respiratory Rate - - Oxygen Saturation - - Inhaled Oxygen Concentration - - Weight 91.6 kg (202 lb) 05/18/2025 2:15 PM CDT Height 179.7 cm (5' 10.75) 09/30/2024 1:[address] Body Mass Index 28.37 09/30/2024 1:44 PM SALES SERVICE ROUTE MANAGER Plan of Treatment Health Maintenance Due Date Last Done Comments Diabetes: Foot Exam 2004 Hep C Screening (Preventive Services) 2004 MenB Immunization Discussion 2004 HPV Vaccine (1 - Male 3-dose series) 2019 HIV Screening (Preventive Services) 2020 Adult Preventive Visit 2022 DTaP/Tdap/Td Vaccine (1 - Tdap) 2023 HepB Vaccine (1) 2023 Pneumococcal Vaccine (1 of 2 - PCV) 2023 Influenza Vaccine (#1) 2025 08/06/2024 Diabetes: Albumin/Creatinine Ratio, Urine 09/30/2025 09/30/2024 Diabetes: Creatinine 09/30/2025 09/30/2024 Diabetes: HGBA1C 11/18/2025 05/18/2025, 09/30/2024 Diabetes: Eye Exam 12/10/2025 12/10/2024 Diabetes: Lipid Panel 09/30/2029 09/30/2024 Zoster/Shingles Vaccine (1 o f 2) 2054 COVID-19 Vaccine Completed 08/06/2024, 10/31/2023 HepA Vaccine Aged Out No longer eligi ble based on patient's age to complete this topic Hib Vaccine Aged Out No longer eligi ble based on patient's age to complete this topic IPV (Polio) Vaccine Aged Out No longe r eligible based on patient's age to complete this topic MCV4 Vaccine Aged Out No longer eligi ble based on patient's age to complete this topic Procedures Procedure Name Priority Date/Time Associated Diagnosis Comments HGB A1C Routine 05/18/2025 2:09 PM CDT Type 1 diabetes mellitus without complication (HRC) [place] (DIABETIC EYE EXAM) 12/10/2024 ALBUMIN/CREAT RATIO Routine 09/30/2024 2 :56 PM SALES SERVICE ROUTE MANAGER Type 1 diabetes mellitus without complication (HRC) CREATININE / GFR Routine 09/30/2024 2:37 PM SALES SERVICE ROUTE MANAGER Type 1 diabetes mellitus without complication (HRC) LIPID PANEL & DIRECT LDL (IF NEEDED) Routine 09/30/2024 2:37 PM SALES SERVICE ROUTE MANAGER Type 1 diabetes mellitus without complication (HRC) from Last 3 Months or Most Recently Relevant to Health Maintenance Results * (ABNORMAL) HgbA1c - Collect in Clinic (05/18/2025 2:09 PM CDT) Hemoglobin A1C (Rapid) 6.9(H) <=5.6 % 05/18/2025 2:23 PM CDT [facility] [address] [facility] Performing Location Endo A SPA MANAGER/ESTHETICIAN 05/18/2025 2:23 PM CDT [facility] [address] [facility] Estimated Average Glucose (Calc) 151 < 117 mg/dL 05/18/2025 2:23 PM CDT [facility] [address] [facility] Comment:Estimated average gl ucose (eAG) converts A1c into glucose units (mg/dL) and estimates average glucose over the past approximately 3 months. The eAG reference interval (<117 mg/dL) corresponds to an A1c of <5.7%. Blood Capillary / Unknown 05/18/2025 2:09 PM CDT 05/18/2025 2:10 PM CDT Narrative [facility] [address] [facility] - 05/18/2025 2:23 PM CDT For patients not previously diagnosed with diabetes: 5.7-6.4%: Increased risk for diabetes 6.5% and greater: Diagnostic for diabetes For patients diagnosed with diabetes: <8.0%: Goal of therapy for ages 18-75 Clinicians may recommend a higher or lower goal for specific individuals. The test method used for this Hemoglobin A1c result can experience interference from elevated hemoglobin and other hemoglobin variants. In patients with results that do not correlate clinically, contact the lab for further direction. Cyn Bales PA-C LAB_1 Final Result [facility] [address] [facility] [address] [place] [id number], [facility] * [place] (DIABETIC EYE EXAM) (12/10/2024) Olegario Brunner MD DUMMY/OTHER/AR Final Result * Albumin/Creatinine Ratio,Random Urine (09/30/2024 2:56 PM SALES SERVICE ROUTE MANAGER) Albumin/Creati nine Ratio, Urine, Random 2 <30 mg/g 09/30/2024 4:27 PM [facility] [facility] [address] [facility] Albumin, Urine, Random 2.2 mg/L 09/30/2024 4:27 PM [facility] [facility] [address] [facility] Creatinine, Urine, Random 105 >20 mg/dL mg/dL 09/30/2024 4:27 PM [facility] [facility] [address] [facility] Urine Non-blood Collection / Unknown 09/30/2024 2:56 PM SALES SERVICE ROUTE MANAGER 09/30/2024 2:56 PM SALES SERVICE ROUTE MANAGER Olegario Brunner MD LAB_1 Final Result Performing Organization Address [facility] de Phone Number [facility] [address] [facility] [address] [place] [address] [[email or web address]] * (ABNORMAL) Lipid Panel & Direct LDL (if Needed) (09/30/2024 2:37 PM SALES SERVICE ROUTE MANAGER) Cholesterol 143 0 - 199 mg/dL 09/30/2024 4:30 PM SALES SERVICE ROUTE MANAGER [place] [id number] Triglyceride 86 <=149 mg/dL 09/30/2024 4:30 PM SALES SERVICE ROUTE MANAGER [facility] [facility] [address] [facility] HDL Cholesterol 35(L) >=40 mg/dL 4:30 PM SALES SERVICE ROUTE MANAGER [facility] [address] [facility] LDL, Calculated 91 <130 mg/dL 4:30 PM SALES SERVICE ROUTE MANAGER [facility] [address] [facility] Non HDL Chol, Calculated 108 <=144 mg/dL 09/30/2024 4:30 PM SALES SERVICE ROUTE MANAGER [place] [id number] Cholesterol/HDL Ratio 4.1 <=5.0 09/30/2024 4:30 PM SALES SERVICE ROUTE MANAGER [place] [id number] Hours Fasting 0.0 8 - 12 Hours 09/30/2024 4:30 PM SALES SERVICE ROUTE MANAGER [place] [id number] Comment:Patient has indicate d a non-fasting status. Blood Venipuncture / Unknown 09/30/2024 2:37 PM SALES SERVICE ROUTE MANAGER 09/30/2024 2:37 PM SALES SERVICE ROUTE MANAGER Olegario Brunner MD LAB_1 Final Result Performing Organization Address [facility] Co de Phone Number [facility] [address] [facility] [address] [place] [address], [facility] * Creatinine / GFR (09/30/2024 2:37 PM SALES SERVICE ROUTE MANAGER) Creatinine 1.18 0.73 - 1.18 mg/dL 09/30/2024 4:30 PM SALES SERVICE ROUTE MANAGER [place] [id number] GFR, Estimated >60 >60 mL/min/1.7 3m2 09/30/2024 4:30 PM SALES SERVICE ROUTE MANAGER [facility] Blood Venipuncture / Unknown 09/30/2024 2:37 PM SALES SERVICE ROUTE MANAGER 09/30/2024 2:37 PM SALES SERVICE ROUTE MANAGER Olegario Brunner MD LAB_[address] [facility] [address] [facility] [address] [place] [address], [facility] from Last 3 Months or Most Recently Relevant to Health Maintenance Insurance [facility] OUT OF STATE Care Teams Caser Up Relationship Specialty Start Date End Date Self-Referral, Patient, MD AYAN CABRERA [place], [place] [id number] PCP - General 08/26/24
--- OUTSIDE RECORDS SUMMARY | 2025-08-27 18:20 | XMS_ITS | Clinical Summary ---
Author Organization [facility] [employer] Address [address] [place] [address] Care Team Providers Care Pari Mutuel Ticket Seller Name Role Phone Provider, No Attributed RESOURCE Unavailable Unavailable Porter Yanes MD Primary Care Provider [phone] Allergies Active Allergy Reactions Criticality Noted Date [...] hyperglycemia, with long-term current use of insulin ([facility]) Use to check blood sugar up to 10 times daily, more if increased activity, illness, or insulin changes. 100 each 12/13/19 22 Active insulin detemir (LEVEMIR) subcutaneous injection (vial)Indications :Uncontrolled type 1 diabetes mellitus with hyperglycemia, with long-term current use of insulin ([facility]) Administer 27 units subcutaneously at bedtime (+2 units for priming); change dose as directed. 15 mL 1 04/13/20 22 Active glucagon (BAQSIMI ONE PACK) 3 MG/DOSE nasal powderIndications :Controlled type 1 diabetes mellitus without complication, with long-term current use of insulin ([facility]) [place] 3 mg into one nostril as needed (severe hypoglycemia) 1 each 3 06/04/20 23 Active glucagon, rDNA, (GLUCAGEN) 1 mg injection kitIndications:Un controlled type 1 diabetes mellitus with hyperglycemia, with long-term current use of insulin ([facility]) Inject 1 mg IM for severe low blood sugar when unable to take oral glucose. 2 each 3 06/04/20 23 Active Accu-Check Guide test stripIndications: Uncontrolled type 1 diabetes mellitus with hyperglycemia, with long-term current use of insulin ([facility]) Use to check blood sugar up to 5 times daily, more if increased activity, illness, or insulin changes. 150 each 06/10/20 23 Active acetone, urine, test (KETOSTIX) STRPIndications:U ncontrolled type 1 diabetes mellitus with hyperglycemia, with long-term current use of insulin ([facility]) Use to check urine for ketones with illness, vomiting, and/or blood sugar >300 x2. 50 Strip 3 10/03/20 23 Active ondansetron (ZOFRAN ODT) 8 mg dispersible tabletIndications :Uncontrolled type 1 diabetes mellitus with hyperglycemia, with long-term current use of insulin ([facility]) Take 1 tablet (8 mg) by mouth as needed for nausea or vomiting 10 tablet 6 10/03/20 23 Active Dexcom G7 SensorIndications :Type 1 diabetes mellitus with hyperglycemia ([facility]) Apply new sensor to be used every 10 days with Dexcom G7. 9 each 3 01/17/20 24 Active insulin aspart (NOVOLOG) subcutaneous injection (vial)Indications :Controlled type 1 diabetes mellitus without complication, with long-term current use of insulin ([facility]) Use to control blood sugar as directed. [...] 0.7 U/kg/d, A1c=7.3%. Planning to travel to [place] for next school year (Jun-March) Resolved Problems Problem Noted Date Diagnosed Date Resolved Date Atypical mole 12/09/2019 03/30/2020 Overview (03/30/2020): 11/25/19 CA= 13 11/12 y/o. R foot mole with irregular margins. Advised dermatology eval with likely biopsy/excision. Patient concerned that biopsy would interrupt soccer aspirations. Healed after removal/biopsy. Immunizations Immunization Administration Dates Next Due FLU VACCINE TRIVALENT SINGLE DOSE(Fluvirin,Afluria) 08/09/2011 FLU VACCINE SINGLE DOSE 0.5mL(6MO+Fluzone/Flulaval/Fluarix,3Y R+Afluria) 08/19/2019,08/06/2018,09/12/2017,2013 INFLUENZA SINGLE DOSE 0.5ML 6 MONTHS AND UP 10/31/2023 Pfizer COVID-19 Vaccine (COM IRNATY) 12 Years And [...] (5' 10.83) 04/06/2024 1:00 PM C DT Body Mass Index 26.97 04/06/2024 1:00 PM [...] 01/09/2024 01/08/2023, 12/05, 11/12/2018, Additional history exists Hemoglobin A1C Every 3 Months 07/07/2024, 10/31/2023, 06/04/2023, Additional history exists Covid-19 Vaccine (2024-2 6 season) 2025 10/31/2023, 08/09/2022, 10/23/2021, Additional history exists Influenza Vaccine (#1) 2025 , 09/26/2022, 08/16/2021, Additional history exists Procedures Procedure Name Priority Date/Time Associated Diagnosis Comments HEMOGLOBIN GLYCATED-IN CLINIC Routine 04/06/2024 1:42 PM CDT Controlled type 1 diabetes mellitus without complication, with long-term current use of insulin (HCC) ALBUMIN WITH ALBUMIN/CREATININE RATIO, RANDOM URINE Routine 01/08/2023 2:10 PM BOTTLE GAUGER Uncontrolled type 1 diabetes mellitus with hyperglycemia, with long-term current use of insulin (HCC) DILATED EYE EXAM - OUTSIDE RESULT Routine 09/26/2022 COMPREHENSIVE METABOLIC PANEL Routine 09/26/2021 4:31 PM BOTTLE GAUGER Type 1 diabetes mellitus with hyperglycemia (HCC) from Last 3 Months or Most Recently Relevant to Health Maintenance Results * (ABNORMAL) HEMOGLOBIN GLYCATED-IN CLINIC (04/06/2024 1:42 PM CDT) Hgb A1C 7.9(A) 4.3 - 5.7 % [facility] Blood 04/06/2024 1:42 PM CDT us Tomasz Bender MD BACK OFFICE LABS Final Result Performing Organization Address City/[facility]/ZIP Co de Phone Number [facility] [address] [place] [address], [place] [address] * MICROALBUMIN CREATININE RATIO, URINE (01/08/2023 2:10 PM BOTTLE GAUGER) Creatinine Urine 129.09 No Reference Range Established mg/dL 01/08/2023 3:36 PM BOTTLE GAUGER [facility] Albumin mg/L <5.00 No Reference Range Established mg/L 01/08/2023 3:36 PM BOTTLE GAUGER [facility] Albumin/Creati nine Ratio 01/08/2023 3:36 PM BOTTLE GAUGER [facility] Comment:Unable to calculate Microalbumin/Creatinine Ratio. Urine URINE SPECIMEN / Unknown Collection / Unknown 01/08/2023 2:10 PM BOTTLE GAUGER 01/08/2023 2:17 PM BOTTLE GAUGER us Jitendra Guerrero MD LAB NON BLOOD Final Result Performing Organization Address City/[facility]/ZIP Co de Phone Number [facility] [address] [place] [address], [place] [address] * DILATED EYE EXAM - OUTSIDE RESULT (09/26/2022) Diabetic Eye Exam (External Result): Normal [facility] Anatomical Region Laterality Modality Other us Abstract Provider OPHTHALMOLOGY SERVICES ORDERAB LES Final Result * (ABNORMAL) COMPREHENSIVE METABOLIC PANEL (09/26/2021 4:31 PM BOTTLE GAUGER) Glucose 313(H) 70 - 100 mg/dL 09/26/2021 4:50 PM BOTTLE GAUGER [facility] BUN 15 5 - 20 mg/dL 09/26/2021 4:[address] [facility] Creatinine 1.12(H) 0.30 - 1.10 mg/dL 09/26/2021 4:[address] [facility] Sodium 140 135 - 145 meq/L 09/26/2021 4:[address] [facility] Potassium 4.2 3.5 - 5.1 meq/L 09/26/2021 4:[address] [facility] Chloride 104 99 - 109 meq/L 09/26/2021 4:[address] [facility] CO2 28 22 - 34 meq/L 09/26/2021 4:[address] [facility] Anion Gap with K 12 6 - 18 meq/L 09/26/2021 4:[address] [facility] Calcium 9.6 8.4 - 10.2 mg/dL 09/26/2021 4:[address] [facility] Protein Total 7.7 6.3 - 8.2 g/dL 09/26/2021 4:[address] [facility] Albumin 4.6 3.4 - 4.8 g/dL 09/26/2021 4:[address] [facility] Alkaline Phosphatase 140 38 - 405 U/L 09/26/2021 4:[address] [facility] AST - SGOT 27 14 - 59 U/L 09/26/2021 4:[address] [facility] ALT - SGPT 19 0 - 50 U/L 09/26/2021 4:[address] [facility] Bilirubin Total 0.8 0.2 - 1.3 mg/dL 09/26/2021 4:50 PM BOTTLE GAUGER [place] Age 15 Years 09/26/2021 4:50 PM BOTTLE GAUGER [place] Fasting Unknown Yes, No, Unknown 09/26/2021 4:50 PM BOTTLE GAUGER [place] Blood BLOOD SPECIMEN / Unknown Venipuncture / Unknown 09/26/2021 4:31 PM BOTTLE GAUGER 09/26/2021 4:33 PM BOTTLE GAUGER Jitendra Guerrero MD LAB BLOOD Final Result [place] [address] [place] [id number] from Last 3 Months or Most Recently Relevant to Health Maintenance Care Teams Pari Mutuel Ticket Seller Relationship Specialty Start Date End Date Provider, No Attributed, RESOURCE [address] PCP - Attributed Provider 09/04/16 Porter Yanes MD [address] [place] [address] PCP - General 09/28/19
--- OUTSIDE RECORDS SUMMARY | 2025-08-27 18:20 | XMS_ITS | Clinical Summary ---
Author Organization [employer] Address [address] [place] [id number] Care Team Providers Care Learning Analyst Name Role Phone Pcp, No Primary Care Provider Unavailabl e Allergies Active Allergy Reactions Criticality Noted Date Comments Azithromycin Hives,Other - Describe In Comment Field High 09/21/2020 Lips swelled Clindamycin Hives,Rash High 09/11/2013 Possible rash from medication Mold Other - Describe In Comment Field 01/09/2018 Penicillins Hives High 08/09/2011 Tree And Shrub Pollen *Unknown 01/09/2018 Trees/grasses/weeds Medications Dexcom G7 Sensor for continuous blood glucose monitor (CGM) As directed 1 Each one time. 4 Active NovoLOG U-100 Insulin aspart 100 unit/mL injection Inject 80 units subcutaneous each time if needed for Blood Gluc > Specify. 5 Active fluticasone (50 mcg per actuation) nasal solution (FLONASE)Indic ations:Nasal congestion Inhale 2 Sprays in both nostrils once daily. 16 g 5 Active cefdinir 300 mg capsuleIndicat ions:Recurrent acute serous otitis media of left ear,Ear pain, left,Eustachia n tube dysfunction, bilateral,Ring ing in left ear Take 1 Capsule (300 mg) by mouth two times daily for 7 days. 14 Capsule 5 08/02/20 25 predniSONE (DELTASONE) 10 mg tabletIndicati ons:Ear pain, left,Eustachia n tube dysfunction, bilateral,Ring ing in left ear Take 3 Tablets (30 mg) by mouth once daily with a meal for 3 days, THEN 2 Tablets (20 mg) once daily with a meal for 3 days, THEN 1 Tablet (10 mg) once daily with a meal for 2 days. 17 Tablet 08/03/20 Active Problems No known active problems Encounters Date Type Department Care Team Description 08/09/2025 3:30 PM CDT Office Visit [facility] [address] [place] [address] Juanis Rooney PA Consult (Otitis Media, Tinnitus) 08/08/2025 Travel 07/29/2025 Telephone [facility] [address] [place] [phone] Pcp, No Appointment (thompson ent referral) 07/26/2025 4:00 PM CDT Office Visit [facility] [address] [place] [address] Chris Negron PA Ear Problem (left) 07/26/2025 Travel from Last 3 Months Immunizations Immunization Administration Dates Next Due INFLUENZA, IIV3 PF (AGE >= 6 MO) 10/31/2023 Influenza, High-dose Quadriv alent Inactivated 08/09/2011 Influenza, IIV3 (Age >=3 years) 08/19/20 19,08/06/2018,09/12/2017,2013 Social History Tobacco Use Types Packs/Day Years Used Date Smoking Tobacco: Former Cigarettes Smokeless Tobacco: Former Tobacco Cessation:Counseling Given: Not Answered Alcohol Use Answer Date Recorded How often do you have a drink containing alcohol ? 1 08/09/2025 Average Number of Drinks Not on file 025 Frequency of Binge Drinking Not on file 04/2025 Sex and Gender Information Value Date Recorded Sex Assigned at Not on file Legal Sex Male 1:22 PM [employer] Gender Identity Not on file Sexual Orientation Not on file Obstetrics History Last Filed Vital Signs Vital Sign Reading Time Taken Comments Blood Pressure 126/58 07/26/2025 4:08 PM CDT Pulse 83 07/26/2025 4:08 PM CDT Temperature 36.8 C (98.2 F) 07/26/2025 4:08 PM CDT Respiratory Rate 18 07/26/2025 4:08 PM CDT Oxygen Saturation 97% 07/26/2025 4:08 PM CDT Inhaled Oxygen Concentration - - Weight 91.3 kg (201 lb 4.8 oz) 07/26/2025 4:08 P M CDT Height - - Body Mass Index - - Plan of Treatment Health Maintenance Due Date Last Done Comments Well Child Check for age 3-20 11/14/2007 Tetanus booster 2015 Depression screening for age 12+ 2016 HIV for age 15-65 2019 HPV series for age 9-45 (1 - Male 3-dose series) 2019 BMI (ht and wt on same day) for age 18+ 2022 Hepatitis C screening for age 18-79 2022 Hepatitis B series for 19+ (1 of 3 - 19+ 3-dose series) 2023 Influenza Vaccine (#1) 2025 3, 08/19/2019, 08/06/2018, Additional history exists RSV vaccine for adults or (1 - 1-dose 75+ series) 2079 Meningococcal series for age 11-21 Aged Out No longer eligible based on patient's age to complete this topic Pneumococcal series for age 6-49 Aged Out No longer eligible based on patient's age to complete this topic Insurance [employer]US OUT OF NETWORK Care Teams Learning Analyst Relationship Specialty Start Date End Date Pcp, No . PCP - General 01/05/25
[2025-08-27 18:53] LABS: PCR FLU A Negative PCR FLU A (Negative); PCR FLU B Negative PCR FLU B (Negative); PCR RSV Negative PCR RSV (Negative); SARS PCR* Negative SARS-CoV-2 (Negative)
[2025-08-27 18:56] LABS: Mono Screen* POSITIVE (Negative)
[2025-08-27 19:01] LABS: Hematocrit* 42.4 % (37.0-53.0); Hemoglobin* 14.3 gm/dL (13.5-17.5); Immature Granulocytes Abs Auto 0.00 K/uL (0.00-0.30); Immature Granulocytes Pct Auto 0.0 %; Mean Corpuscular HGB Conc 34 gm/dL (32-36); Mean Corpuscular Hemoglobin 29 pg (26-34); Mean Corpuscular Volume 87 fL (80-100); RDW Coefficient of Variation % 12.8 % (11.5-15.5); Red Blood Count* 4.87 m/uL (4.30-5.90); White Blood Count* 7.50 K/uL (4.50-11.00)
[2025-08-27 19:34] LABS: Lymphocytes Absolute Auto 5.40 K/uL (0.90-2.90); Slide Review Reflex Yes
[2025-08-27 19:37] LABS: Slide Review Acceptable Review (Acceptable)
== END 2025-08-27 19:48 | disposition home or self-care (01) ==
PROVIDERS: Emergency Provider Family Medicine
DX: B27.90 Infectious mononucleosis, unspecified without complication (principal); J03.90 Acute tonsillitis, unspecified
CPT/HCPCS: 36415; 85025; 86308; 87631; 99284; 99285